=== PATIENT | female | born 1935 | race Caucasian/White ===

== ENCOUNTER 2016-11-29 16:54 | Observation (INO) | payer MEDICARE, OTHER ==
[~2016-11-29] VITALS: Ht 149.9 cm; Wt 52.3 kg
--- NOTE | 2016-11-29 17:29 | NUR ---
RECEIVED VIA WHEELCHAIR TO ROOM. LEFT EYE SWOLLEN WITH SCELERA SEEN TO BE RED. BANDAID SEEN ACROSS NOSE. BED ALARM SET. WILL ADMIT.
--- NOTE | 2016-11-29 17:31 | NUR ---
BOX ALARM SET ON PATIENT BED ALARM IS NOT WORKING.
--- NOTE | 2016-11-29 17:32 | NUR ---
PATIENT IS NOT AWARE OF WHAT MEDICATIONS SHE TAKES, SON AT BEDSIDE AND WILL BRING HOME MEDICATIONS TO US. [facility].
[2016-11-29 17:41] VITALS: BP 103/43; Ht 149.9 cm; Wt 52.3 kg
--- NOTE | 2016-11-29 18:19 | NUR ---
SALINE LOCK WITH 20 G TO RIGHT AC, X [address] STICK. WILL MAKE NPO FOR CT SCAN.
[2016-11-29 18:47] LABS: BASOPHILS 0.3 % (0.0-2.0); HEMATOCRIT 33.3 % (36.0-48.0); HEMOGLOBIN 10.9 g/dL (12-16); IMMATURE GRANULOCYTES 0.6 % (0-5); LYMPHOCYTES 17.1 % (15-50); MCH 29.5 pg (26.0-34.0); MCHC 32.7 g/dL (31.0-37.0); MCV 90.2 fL (80.0-100.0); MONOCYTES 4.4 % (2-11); NEUTROPHILS 73.6 % (40-80); PLATELET COUNT 299 10x3/uL (130-400); RBC 3.69 10x6/uL (4.00-5.40); RDW 16.3 % (11.5-14.5); WBC 8.7 10x3/uL (4.8-10.8)
[2016-11-29 19:05] LABS: ALBUMIN 3.1 g/dL (3.4-5.0); ANION GAP 14.6 mmol/L (8-16); BILIRUBIN - TOTAL 0.25 mg/dL (0.2-1.3); CALCIUM 10.1 mg/dL (8.5-10.1); CARBON DIOXIDE 25.2 mmol/L (21.0-32.0); CREATININE - SERUM 1.4 mg/dL (0.6-1.3); POTASSIUM - SERUM 3.8 mmol/L (3.5-5.1); PROTEIN - SERUM 7.7 g/dL (6.4-8.2)
--- NOTE | 2016-11-29 19:30 | NUR ---
DENIES NEEDS AT THIS TIME. ALERT AND ORIENTED X3. UP WITH ASSIST ON ROOM AIR, 20G TO RT AC INTACT WITH NO R/S NOTED AT SITE. ON BOX ALARM FOR SAFETY, HOB FLAT, SR UP X2, C/L IN REACH. BRUISES NOTED TO FACIAL AREA. C/L IN REACH, CONTINUE TO MONITOR.
[2016-11-30] VITALS: BP 88/43
--- NOTE | 2016-11-30 01:47 | NUR ---
EYES CLOSED, RESP EVEN AND UNLAB. NO S/S OF ACUTE DISTRESS NOTED. C/L IN REACH.
[2016-11-30 04:00] VITALS: BP 101/45
--- NOTE | 2016-11-30 07:20 | NUR ---
BOX ALARM REPLACED TO PATIENT. LEFT EYE IS SWOLLEN AND PURPLE IN COLOR, ABLE TO OPEN SLIGHTLY. SALINE LOCK SEEN TO RIGHT AC. ON ROOM AIR. WILL CONTINUE TO MONITOR.
[2016-11-30 07:32] VITALS: BP 171/74
--- NOTE | 2016-11-30 09:27 | NUR ---
NEW WALLY FROM DR WATSON.
[2016-11-30] MEDS ORDERED: CYMBALTA30 MG PO (10:20)
[2016-11-30] MEDS ORDERED: METHOTREXATE2.5 MG PO (10:22)
[2016-11-30] MEDS ORDERED: LOTREL 10/20 CA1 CAP PO (10:23)
[2016-11-30] MEDS ORDERED: FOLIC ACID1 MG PO (10:23)
[2016-11-30] MEDS ORDERED: SYNTHROID50 MCG PO (10:24)
[2016-11-30] MEDS ORDERED: NYSTATIN ORAL SU5 ML PO (10:25)
--- NOTE | 2016-11-30 11:27 | NUR ---
SCD'S ON BILATERAL LE
[2016-11-30 11:34] VITALS: BP 161/44
[2016-11-30 15:33] VITALS: BP 160/62
--- NOTE | 2016-11-30 17:07 | NUR ---
Patient Name: STARR BRANDT Admission Status: Urgent Accout number: [id number] Admission Date: 11-29-2016 : 1935 Admission Diagnosis: Attending: FREDA Current LOS: 1 Anticipated DC Date: Planned Disposition: Home Primary Insurance: MEDICARE A & B Discharge Planning Comments: * Is the patient Alert and Oriented? Yes 0 * How many steps to enter\exit or inside your home? RAMP 0 * PCP DR. WATSON 0 * Pharmacy [facility] 0 * Preadmission Environment Home with Family 0 * ADLs Independent 0 * Equipment Cane Walker Wheelchair 0 * Other Equipment NO MEDICAL EQUIPMENT PROVIDER PREFERENCE 0 * List name and contact numbers for known caregivers / representatives who currently or will assist patient after discharge: ARIELLE BRANDT JR, SON, MARCJOSH CASTORENA DTR, (IN [place] UNTIL 12-03-16) 0 * Community resources currently utilized None 0 * Please name any agencies selected above. NONE 0 * Additional services required to return to the preadmission environment? No 0 * Can the patient safely return to the preadmission environment? Yes 0 * Has this patient been hospitalized within the prior 30 days at any hospital? No 0 CM MET WITH PT AND DAUGHTER IN ROOM. PT REPORTS LIVING AT HOME INDEPENDENTLY WITH HER SPOUSE AND ADULT SON. PT ASSISTS WITH CARE OF HER SPOUSE AT HOME. T [employer] HAVE NO OTHER OUTSIDE SERVICES ASSISTING IN THE HOME. CM DISCUSSED AVAILABILITY OF HOME HEALTH, REHAB SERVICES AND MEDICAL EQUIPMENT. PT DENIES DISCHARGE NEEDS, REPORTS HER SON OR DAUGHTER WILL TRANSPORT HER HOME AT DISCHARGE. PT REPORTS THAT THEY DO NOT SEE ANY BENEFIT FROM HOME HEALTH THEY BOTH HAVE USED THEM IN THE PAST WITH NO PERCEIVED BENEFIT; PT REPORTS FAMILY WILL TAKE CARE OF THEIR NEEDS AT HOME. PT PLANS TO GO HOME AT DISCHARGE AND DENIED DISCHARGE NEEDS AT THIS TIME, REFUSING HOME HEALTH AND REHAB SERVICES. CM TO FOLLOW AND ASSIST NEEDED. Bar Steward: Carlos Manuel De Los Santos
--- NOTE | 2016-11-30 18:19 | NUR ---
VERBAL AND WRITTEN DISCHARGE INSTRUCTIONS GIVEN TO PATIENT AND DAUGHTER. SALINE LOCK REMOVED WITH CATH TIP INTACT.
--- NOTE | 2016-11-30 18:28 | NUR ---
DISCHARGED HOME VIA WHEELCHAIR.
== END 2016-11-30 18:30 | disposition home or self-care (01) ==
LOC: D.M2 16:54 → OBSVTIME 16:55 → D.M2 11-30 18:30
PROVIDERS: ADMIT Family Medicine
DX: S09.90XA Unspecified injury of head, initial encounter (principal); W19.XXXA Unspecified fall, initial encounter; S01.21XA Laceration without foreign body of nose, initial encounter; R91.8 Other nonspecific abnormal finding of lung field; M25.561 Pain in right knee; Z72.0 Tobacco use

== ENCOUNTER 2017-01-04 10:31 | Inpatient (IN) | payer MEDICARE, OTHER ==
[~2017-01-04] VITALS: Ht 149.9 cm; Wt 51.0 kg
[~2017-01-04 10:31] MED LIST: CYMBALTA30 MG PO; FOLIC ACID1 MG PO; LOTREL 10/20 CA1 CAP PO; METHOTREXATE2.5 MG PO; NYSTATIN ORAL SU5 ML PO; SYNTHROID50 MCG PO
--- NOTE | 2017-01-04 11:09 | NUR ---
PATIENT ARRIVED TO UNIT VIA WHEELCHAIR WITH THE CHRONOMETER ASSEMBLER AND ADJUSTER. PATIENT ADMITTED FROM 'S OFFICE. PATIENT STATES SHE WENT TO OFFICE THIS AM DUE TO DIARRHEA FOR PAST FEW DAYS/WEEK. DENIES NAUSEA/ VOMITING. ALERT/ORIENTED. ASSISTED PATIENT INTO GOWN AT THIS TIME. NO ACUTE DISTRESS.
[2017-01-04 11:17] LABS: BASOPHILS 0.1 % (0.0-2.0); HEMATOCRIT 33.6 % (36.0-48.0); HEMOGLOBIN 10.8 g/dL (12-16); IMMATURE GRANULOCYTES 0.4 % (0-5); LYMPHOCYTES 11.8 % (15-50); MCH 29.9 pg (26.0-34.0); MCHC 32.1 g/dL (31.0-37.0); MCV 93.1 fL (80.0-100.0); MEAN PLATELET VOLUME 9.7 fL (7.4-10.4); MONOCYTES 6.2 % (2-11); NEUTROPHILS 79.5 % (40-80); PLATELET COUNT 261 10x3/uL (130-400); RBC 3.61 10x6/uL (4.00-5.40); RDW 18.5 % (11.5-14.5); WBC 7.1 10x3/uL (4.8-10.8)
[2017-01-04] MEDS ORDERED: FOLIC ACID1 MG PO (11:20)
[2017-01-04] MEDS ORDERED: ACETAMINOPHEN500 M1 PO (11:24)
[2017-01-04 11:38] VITALS: BP 141/63
[2017-01-04 11:41] LABS: ALBUMIN 3.2 g/dL (3.4-5.0); ANION GAP 13.8 mmol/L (8-16); BILIRUBIN - TOTAL 0.3 mg/dL (0.2-1.3); CALCIUM 9.1 mg/dL (8.5-10.1); CARBON DIOXIDE 25.2 mmol/L (21.0-32.0); MAGNESIUM - SERUM 2.2 mg/dL (1.8-2.4); PROTEIN - SERUM 8.2 g/dL (6.4-8.2)
--- NOTE | 2017-01-04 12:07 | NUR ---
22 GAUGE IV PLACED X 1 STICK BY NILDA MORATAYA RN TO RIGHT AC. GOOD BLOOD RETURN, EASY FLUSH. TAPED, DATED AND SECURED. PATIENT TOLERATED IV PLACEMENT WELL. NO DISTRESS. SITTING IN BED CONSUMING NOON MEAL AT THIS TIME.
[2017-01-04 12:19] VITALS: BP 141/63; BMI 23.0
[2017-01-04 15:54] LABS: APPEARANCE CLEAR (CLEAR); BILIRUBIN NEGATIVE (NEGATIVE); COLOR YELLOW (YELLOW); GLUCOSE NEGATIVE (NEGATIVE); KETONE NEGATIVE (NEGATIVE); LEUKOCYTE ESTERASE NEGATIVE (NEGATIVE); NITRITE NEGATIVE (NEGATIVE); PROTEIN NEGATIVE (NEGATIVE); UROBILINOGEN NORMAL (NORMAL)
[2017-01-04 16:18] VITALS: BP 166/56
--- NOTE | 2017-01-04 18:20 | NUR ---
RESTING IN BED WITH EYES OPEN, SPOUSE AT BEDSIDE. CALL LIGHT WITHIN REACH. NO DISTRESS.
[2017-01-04 20:00] VITALS: BP 101/56
--- NOTE | 2017-01-04 21:23 | NUR ---
PT LYING IN BED, EYES CLOSED, RESPIRATIONS EVEN AND UNLABORED. PT EASILY ROUSABLE TO VERBAL STIMULI, DENIES ANY ACUTE NEEDS. PT STATES SHE HAS GREAT PAIN IN BOTH HER LEGS, DENIES HAVING ANY DIARRHEA EPISODES, AND STATES SHE FEELS OK LONG SHE IS LYING FLAT. CONTINUE TO MONITOR CLOSELY. BED LOW, CALL LIGHT IN REACH, SIDE RAILS X 2, HOB 10 DEGREES.
[2017-01-05] VITALS: BP 102/62
--- NOTE | 2017-01-05 02:47 | NUR ---
PT LYING IN BED, EYES CLOSED, RESPIRATIONS EVEN AND UNLABORED. CONTINUE TO MONITOR CLOSELY.
[2017-01-05 04:00] VITALS: BP 102/60
[2017-01-05 04:01] LABS: BASOPHILS 0.2 % (0.0-2.0); EOSINOPHILS 4.4 % (0-7); HEMATOCRIT 31.9 % (36.0-48.0); HEMOGLOBIN 10.1 g/dL (12-16); IMMATURE GRANULOCYTES 0.2 % (0-5); MCH 29.6 pg (26.0-34.0); MCHC 31.7 g/dL (31.0-37.0); MCV 93.5 fL (80.0-100.0); MEAN PLATELET VOLUME 9.5 fL (7.4-10.4); MONOCYTES 3.6 % (2-11); NEUTROPHILS 70.6 % (40-80); PLATELET COUNT 255 10x3/uL (130-400); RBC 3.41 10x6/uL (4.00-5.40); RDW 18.4 % (11.5-14.5)
[2017-01-05 04:05] LABS: WBC 5.2 10x3/uL (4.8-10.8)
[2017-01-05 04:12] LABS: ALBUMIN 2.7 g/dL (3.4-5.0); ANION GAP 11.8 mmol/L (8-16); BILIRUBIN - TOTAL 0.48 mg/dL (0.2-1.3); CALCIUM 8.2 mg/dL (8.5-10.1); CARBON DIOXIDE 23.2 mmol/L (21.0-32.0); CREATININE - SERUM 0.9 mg/dL (0.6-1.3); PROTEIN - SERUM 7.3 g/dL (6.4-8.2)
--- NOTE | 2017-01-05 07:00 | NUR ---
PT WAS RECEIVED AT THE BEGINNING OF THIS SHIFT IN BED AWAKE AND ORIENTED X 3. NO VOICED COMPLAINTS OR CONCERNS. VITAL SIGNS WNL. RT AC WITH NS GOING AT 75ML'S/HR PER PUMP WITH NO DIFFICULTY. WILL BE MONITORING HER AND ASSISTING PRN WITH ADL'S. CALL LIGHT IS IN REACH. UP AD CIARA WITH MIN. ASSIST.
[2017-01-05 08:00] VITALS: BP 106/70
--- NOTE | 2017-01-05 11:51 | NUR ---
RATIONALE FOR SCD'S EXPLAINED. REFUSED SCD'S
[2017-01-05 12:00] VITALS: BP 97/59
[2017-01-05 13:47] VITALS: Ht 149.9 cm; Wt 51.0 kg
--- NOTE | 2017-01-05 15:17 | NUR ---
NO SIGNS OF ANY DISCOMFORT OR DISTRESS. PT. HAS REFUSED WEARING SCD'S. NORMAL SALINE INFUSING VIA RT. AC AT 75ML'S.HR PER PUMP. CALL LIGHT IN REACH.
[2017-01-05 17:21] VITALS: BP 98/53
--- NOTE | 2017-01-05 19:21 | NUR ---
PT AWAKE, ALERT, ORIENTED, STATES SHE IS FEELING A LITTLE BETTER. PT DENIES ANY ACUTE NEEDS, AND IS NO ACUTE DISTRESS. CONTINUE TO MONITOR CLOSELY.
[2017-01-05 20:00] VITALS: BP 97/66
[2017-01-06 04:00] VITALS: BP 93/56
--- NOTE | 2017-01-06 04:52 | NUR ---
PT LYING IN BED, EYES CLOSED, RESPIRATIONS EVEN AND UNLABORED. PT EASILY ROUSABLE TO VERBAL STIMULI. CONTINUE TO MONITOR CLOSELY.
--- NOTE | 2017-01-06 07:27 | NUR ---
RESTS IN BED WITH EYES CLOSED. IV PATENT. CALL LIGHT IN REACH. WILL CONT. PLAN OF CARE.
[2017-01-06 08:13] VITALS: BP 90/60
--- NOTE | 2017-01-06 10:08 | NUR ---
Patient Name: STARR BRANDT Admission Status: Elective Accout number: [id number] Admission Date: 01-04-2017 : 1935 Admission Diagnosis:DEHYDRATION Attending: FREDA Current LOS: 2 Anticipated DC Date: 01-06-2017 Planned Disposition: Home Primary Insurance: MEDICARE A & B Discharge Planning Comments: * Is the patient Alert and Oriented? Yes 0 * How many steps to enter\exit or inside your home? RAMP 0 * PCP DR. WATSON 0 * Pharmacy [facility] 0 * Preadmission Environment Home with Family 0 * ADLs Independent 0 * Equipment Cane Walker Wheelchair 0 * Other Equipment NO MEDICAL EQUIPMENT PROVIDER PREFERENCE 0 * List name and contact numbers for known caregivers / representatives who currently or will assist patient after discharge: ARIELLE BRANDT JR, SON, MARCJOSH CASTORENA DTR, 0 * Community resources currently utilized Other 0 * Please name any agencies selected above. OUTPATIENT REHAB ORDER PENDING PT MAKING APPT FOR OUTPATIENT PHYSICAL THERAPY AT [facility]. 0 * Additional services required to return to the preadmission environment? No 0 * Can the patient safely return to the preadmission environment? Yes 0 * Has this patient been hospitalized within the prior 30 days at any hospital? No 0 CM RECEIVED DISCHARGE AND HOME HEALTH ORDER. CM MET WITH PT IN ROOM TO DISCUSS DISCHARGE PLANNING AND NEEDS. PT REPORTS LIVING AT HOME INDEPENDENTLY; PT'S ADULT SON LIVES WITH PT. PT HAS NO MEDICAL EQUIPMENT AND NO OUTSIDE SERVICES ASSISTING IN THE HOME. CM DISCUSSED AVAILABILITY OF HOME HEALTH, REHAB SERVICES AND MEDICAL EQUIPMENT. PT DENIES DISCHARGE NEEDS, REPORTS HER SON IS HERE TO PICK HER UP FOR DISCHARGE HOME TODAY. PT AND FAMILY HAS CONSIDERED HOME HEALTH AND DENIES THE NEED, PT REPORTS SHE IS ABLE TO GET TO OUTPATIENT THERAPY AT [facility] AND ONLY HAS TO CALL TO RESCHEDULE HER APPOINTMENT FOR FIRST VISIT. PT'S FAMILY IN AGREEMENT WITH PLAN. NO FUTHER DISCHARGE NEEDS IDENTIFIED. Loan Processing Supervisor: Carlos Manuel De Los Santos
--- NOTE | 2017-01-06 10:52 | NUR ---
D/C PER PERSONAL VEHICLE
== END 2017-01-06 13:55 | disposition home or self-care (01) | DRG 641 ==
LOC: D.M2 10:31
PROVIDERS: ADMIT Family Medicine
DX: E86.0 Dehydration (principal); R19.7 Diarrhea, unspecified; I10 Essential (primary) hypertension; Z72.0 Tobacco use

== ENCOUNTER → 2018-03-10 14:31 | Outpatient (CLI) | payer MEDICARE, OTHER ==
[2017-01-05 13:47] VITALS: BMI 23.0
[~2018-03-10 14:31] MED LIST changes: +ACETAMINOPHEN500 M1 PO
== END | disposition home or self-care (01) ==
LOC: D.CT 14:31
DX: R91.8 Other nonspecific abnormal finding of lung field (principal)

== ENCOUNTER 2019-09-30 16:52 | Inpatient (IN) | payer MEDICARE, OTHER ==
[~2019-09-30] VITALS: Ht 149.9 cm; Wt 58.4 kg
[2019-09-30] MEDS ORDERED: PLAQUENIL PO (16:58)
[2019-09-30] MEDS ORDERED: CYMBALTA30 MG PO (16:59)
[2019-09-30] MEDS ORDERED: LEUCOVORIN CALCI5 MG PO (17:00)
[2019-09-30] MEDS ORDERED: AZOR 10-20 MG T1 TAB PO (17:00)
[2019-09-30] MEDS ORDERED: METHOTREXATE2.5 MG PO (17:01)
[2019-09-30] MEDS ORDERED: COLACE100 MG PO (17:01)
[2019-09-30] MEDS ORDERED: STERAPRED DS 1010 MG PO (17:02)
[2019-09-30] MEDS ORDERED: TESSALON PERLE100 MG PO (17:02)
[2019-09-30] MEDS ORDERED: ZPAK PO (17:02)
[2019-09-30] MEDS ORDERED: MUCINEX600 MG PO (17:03)
[2019-09-30] MEDS ORDERED: ALBUTEROL SULF8.5 GM INH (17:03)
[2019-09-30 17:34] LABS: BASOPHILS 0.1 % (0-2); EOSINOPHILS 0.5 % (0-7); HEMATOCRIT 34.6 % (36.0-48.0); HEMOGLOBIN 11.4 g/dL (12-16); IMMATURE GRANULOCYTES 0.3 % (0-5); LYMPHOCYTES 6.4 % (15-50); MCH 30.6 pg (26.0-34.0); MCHC 32.9 g/dL (31.0-37.0); MEAN PLATELET VOLUME 9.4 fL (7.4-10.4); MONOCYTES 5.8 % (2-11); NEUTROPHILS 86.9 % (40-80); RBC 3.72 10x6/uL (4.00-5.40); RDW 14.6 % (11.5-14.5); WBC 10.2 10x3/uL (4.8-10.8)
[2019-09-30 17:35] LABS: PLATELET COUNT 332 10x3/uL (130-400)
[2019-09-30 17:42] LABS: CALC OSMOLALITY 274 mosm/kg (275-300); CALCIUM 8.4 mg/dL (8.5-10.1); CARBON DIOXIDE 21.5 mmol/L (21.0-32.0); CHLORIDE - SERUM 102 mmol/L (98-107); CREATININE - SERUM 1.2 mg/dL (0.6-1.3); GLUCOSE 138 mg/dL (74-106); POTASSIUM - SERUM 4.6 mmol/L (3.5-5.1); SODIUM 135 mmol/L (136-145); UREA NITROGEN 21 mg/dL (7-18); eGFR NON AFRICAN AMERICAN 45 mL/min (90-120)
[2019-09-30 17:43] LABS: APTT 33.8 SECONDS (22.8-39.4); INR 1.13 (0.85-1.17)
[2019-09-30 17:59] LABS: ALBUMIN 3.2 g/dL (3.4-5.0); ALKALINE PHOSPHATASE 103 U/L (46-116); ALT (SGPT) 42 U/L (10-68); BILIRUBIN - TOTAL 0.28 mg/dL (0.2-1.3); CKMB 1.6 U/L (0.0-3.6); CREATINE KINASE 47 UL (21-215); PRO BNP 16308 pg/mL (0-450); PROTEIN - SERUM 7.4 g/dL (6.4-8.2); TROPONIN-I 0.057 ng/mL (0.000-0.060)
[2019-09-30 19:08] VITALS: BP 117/79
--- NOTE | 2019-09-30 20:00 | NUR ---
RECIEVED TO ROOM ALERT AND ORIENTIATED, REPORTS SOB AND WEAKNESS SINCE TUESDAY, O2 IN USE VIA NC, ORIENTIATED TO ROOM, CALL GODFREY GARCIA, SEE ASSESSMENT
[2019-09-30 22:20] VITALS: BP 120/64; BMI 22.2
[2019-10-01 04:00] VITALS: BP 122/65
[2019-10-01 05:24] LABS: BASOPHILS 0 % (0-2); EOSINOPHILS 0 % (0-7); HEMATOCRIT 32.5 % (36.0-48.0); HEMOGLOBIN 10.6 g/dL (12-16); IMMATURE GRANULOCYTES 0.2 % (0-5); LYMPHOCYTES 10.1 % (15-50); MCHC 32.6 g/dL (31.0-37.0); MCV 92.1 fL (80.0-100.0); MEAN PLATELET VOLUME 9.5 fL (7.4-10.4); MONOCYTES 1.7 % (2-11); PLATELET COUNT 317 10x3/uL (130-400); RBC 3.53 10x6/uL (4.00-5.40); RDW 14.7 % (11.5-14.5)
[2019-10-01 05:32] LABS: INR 1.07 (0.85-1.17); PROTIME 13.4 SECONDS (11.6-15.0)
[2019-10-01 05:51] LABS: WBC 5.7 10x3/uL (4.8-10.8)
[2019-10-01 05:59] LABS: ANION GAP 17.6 mmol/L (8-16); CALCIUM 8.6 mg/dL (8.5-10.1); CARBON DIOXIDE 19.8 mmol/L (21.0-32.0); MAGNESIUM - SERUM 2.4 mg/dL (1.8-2.4); PHOSPHOROUS 4.1 mg/dL (2.5-4.9); POTASSIUM - SERUM 4.4 mmol/L (3.5-5.1)
[2019-10-01 08:01] VITALS: BP 137/63
[2019-10-01 12:43] VITALS: BP 127/59
[2019-10-01 14:00] VITALS: BMI 22.2
[2019-10-01 15:51] VITALS: BP 95/55
[2019-10-01 16:21] VITALS: Ht 149.9 cm; Wt 58.4 kg
--- NOTE | 2019-10-01 19:31 | NUR ---
LYING IN BED WITH FAMILY AT BEDSIDE. SOB NOTED. APPEARS TO BE UNSTEADY IN DEXTERITY. PLEASANT MOOD AND AFFECT. VSS. O2 2LPM VIA NC WITH SATURATION AT 95%. WILL BE NPO AFTER MIDNIGHT FOR PROCEDURE IN AM. WILL NOTE ANY CHANGE.
[2019-10-01 20:00] VITALS: BP 104/68
--- NOTE | 2019-10-01 23:48 | NUR ---
COMPLAINTS OF SOB AND FEELING JITTERY, NOT ABLE TO CATCH BREATH, RT ON FLOOR AND ASSESSED WITH NEW ORDERS FOR NEW PRN UPDRAFT. MEDICAL CONSULTED WITH ORDERS TO CALL PULMONARY IF PRN TX INEFFECTIVE. WILL NOTE ANY CHANGE.
--- NOTE | 2019-10-02 03:03 | NUR ---
I have reviewed this patient and I concur with the Shift Assessment completed by the Licensed Practical Nurse today this shift.
[2019-10-02 04:00] VITALS: BP 141/77
[2019-10-02 04:40] LABS: BASOPHILS 0 % (0-2); EOSINOPHILS 0 % (0-7); HEMATOCRIT 30.6 % (36.0-48.0); HEMOGLOBIN 10.1 g/dL (12-16); IMMATURE GRANULOCYTES 0.3 % (0-5); MCH 30.3 pg (26.0-34.0); MCV 91.9 fL (80.0-100.0); MEAN PLATELET VOLUME 9.5 fL (7.4-10.4); MONOCYTES 4.5 % (2-11); NEUTROPHILS 90.2 % (40-80); PLATELET COUNT 362 10x3/uL (130-400); RBC 3.33 10x6/uL (4.00-5.40); RDW 14.8 % (11.5-14.5)
[2019-10-02 04:43] LABS: WBC 13.7 10x3/uL (4.8-10.8)
[2019-10-02 05:09] LABS: ANION GAP 16.5 mmol/L (8-16); BILIRUBIN - TOTAL 0.24 mg/dL (0.2-1.3); CALCIUM 8.5 mg/dL (8.5-10.1); CARBON DIOXIDE 20.7 mmol/L (21.0-32.0); CREATININE - SERUM 1.2 mg/dL (0.6-1.3); POTASSIUM - SERUM 4.2 mmol/L (3.5-5.1); PROTEIN - SERUM 7.1 g/dL (6.4-8.2)
--- NOTE | 2019-10-02 08:25 | NUR ---
PT RESTING IN BED. RESP EVEN AND UNLABORED. O2 @ 2.5L NC IN PLACE. PT VOICES ANXIETY REGARDING UPCOMING PROCEDURE. TALKED WITH PT REGARDING PROCEDURE. DENIES PAIN AT THIS TIME. DENIES FURTHER NEEDS AT THIS TIME. CL WITHIN REACH. ENCOURAGED TO CALL WITH NEEDS. CONTINUE POC
[2019-10-02 08:45] VITALS: BP 128/85; BP 129/72
--- NOTE | 2019-10-02 11:27 | NUR ---
CONTACTED DR. DISLA TO VERIFY THAT NITESH WOULD NOT BE PERFORMED TODAY. HE VOICES THAT IT WILL NOT BE PERFORMED UNTIL TUESDAY AND OK TO FEED PT.
[2019-10-02 13:07] VITALS: BP 123/76
[2019-10-02 16:45] VITALS: BP 106/53
--- NOTE | 2019-10-02 19:30 | NUR ---
A&O X 4, SUPINE IN BED. DENIES SOB/DYSPNEA/WEAKNESS. REPORTS ANXIETY AFTER STEROIDS. VS STABLE. FAMILY AT BEDSIDE, NO NEEDS AT THIS TIME, WILL CONTINUE TO MONITOR.
[2019-10-02 21:10] VITALS: BP 139/68
[2019-10-03] VITALS (11 sets, daily range): BP systolic 91–130; BP diastolic 52–90
--- NOTE | 2019-10-03 01:32 | NUR ---
I have reviewed this patient and I concur with the Shift Assessment completed by the Licensed Practical Nurse today this shift.
[2019-10-03 07:33] LABS: BASOPHILS 0 % (0-2); EOSINOPHILS 0 % (0-7); HEMATOCRIT 32.1 % (36.0-48.0); HEMOGLOBIN 10.3 g/dL (12-16); IMMATURE GRANULOCYTES 0.5 % (0-5); LYMPHOCYTES 7.1 % (15-50); MCHC 32.1 g/dL (31.0-37.0); MCV 93.6 fL (80.0-100.0); MEAN PLATELET VOLUME 9.7 fL (7.4-10.4); MONOCYTES 5.2 % (2-11); NEUTROPHILS 87.2 % (40-80); PLATELET COUNT 356 10x3/uL (130-400); RBC 3.43 10x6/uL (4.00-5.40); RDW 15.1 % (11.5-14.5)
--- NOTE | 2019-10-03 07:37 | NUR ---
RESTING IN BED, NO DISTRESS NOTED, O2 PER NC AT 2L, SL IN PLACE BILATERALLY, CONT TO MONITOR
[2019-10-03 07:55] LABS: ALBUMIN 3.2 g/dL (3.4-5.0); ANION GAP 16.4 mmol/L (8-16); BILIRUBIN - TOTAL 0.21 mg/dL (0.2-1.3); CALCIUM 8.3 mg/dL (8.5-10.1); CARBON DIOXIDE 21.4 mmol/L (21.0-32.0); CREATININE - SERUM 1.5 mg/dL (0.6-1.3); POTASSIUM - SERUM 4.8 mmol/L (3.5-5.1); PROTEIN - SERUM 7.1 g/dL (6.4-8.2)
--- NOTE | 2019-10-03 16:55 | NUR ---
1550 PT C/O NAUSEA, MEDICATED WITH ZOFRAN, PT STATES I THINK SOMETHING MORE IS WRONG, ATTEMPTED PULSE OX, O2 AT 4 L PER NC, UNABLE TO OBTAIN A SAT, RAPID RESPONSE CALLED
--- NOTE | 2019-10-03 16:56 | NUR ---
ABG DRAWN, SIERRA RN FROM ICU HERE,PT PLACED ON NONREBREATHER MASK, CONT TO NOT BE ABLE TO OBTAIN SAT, PT ANXIOUS, BP WNL, TELE IN PLACE, REPORT CALLED TO BY SIERRA, PT TRANSFERED TO ROOM 11 PER BED, TRIED TO REACH HERIBERTO TO UPDATE ON PT MOVE, NO ANSWER
--- NOTE | 2019-10-03 17:00 | NUR ---
PT TO ROOM 2309 FROM MED SURG. ON NONREBREATHER AT 100% AND O2 SAT AT 97%. IVS TO RIGHT FOREARM AND LEFT FOREARM. PT GIVEN ATIVAN BEFORE BEING SENT TO THE FLOOR.
--- NOTE | 2019-10-03 17:15 | NUR ---
BUMEX GIVEN PER ORDER. RT PLACED PT ON HIGH FLOW O2 AT 7L. O2 SATS STAYING 86-92%. LUNGS AUSCULTATED. INS AND EXP WHEEZES HEARD EFREN IN ALL LOBES. BOWEL SOUNDS HYPOACTIVE IN ALL 4 QUADRANTS. PT DROWSY AFTER ATIVAN GIVEN EARLIER BUT CLUTCHING LEFT LOWER QUADRANT OF ABD. DAUGHTER AT BEDSIDE. UPDATED. WILL CONTINUE TO MONITOR.
--- NOTE | 2019-10-03 17:20 | NUR ---
1715 SPOKE WITH DAUGHTER MARC, UPDATED ON CONDITION CHANGE
--- NOTE | 2019-10-03 17:50 | NUR ---
1620 ATIVAN 1MG GIVEN IV FOR ANXIETY
--- NOTE | 2019-10-03 17:59 | NUR ---
SPOKE AT LENGTH WITH PT'S DAUGHTER. STATES PT HAS HAD ABDOMINAL PAIN. THAT SHE HAD A VERY SMALL BM SINCE SHE'S BEEN HERE TUESDAY. STATES THAT THE PT HAS STARTED GETTING NAUSEATED AT MEALS AND WON'T EAT BUT A COUPLE OF BITES. BOWEL SOUNDS ARE HYPOACTIVE. TOLD DAUGHTER I WOULD PASS IN REPORT. CHARGE NURSE ALSO SPOKE WITH PT'S DAUGHTER AND STATED SHE WOULD LET THE CHARGE NURSE KNOW.
--- NOTE | 2019-10-03 19:00 | NUR ---
REPORT RECEIVED. INITIAL ASSESSMENT COMPLETE. PT LETHARGIC DOES ANSWER QUESTIONS APPROPRIATELY IS ORIENTED TO PERSON PLACE TIME AND SITUATION. DRIFTS IN AND OUT OF SLEEP. FOLLOWS COMMANDS. RESP SHALLOW ON 7LPM HFNC O2 SAT 98%. HYPOACTIVE BOWEL SOUNDS PT DENIES PAIN AT THIS TIME AND STATES "I DONT KNOW WHAT MADE ME SICK TO MY STOMACH EARLIER BUT I WAS NAUSEATED AND MY BELLY HURT REALLY BAD DOES NOT HURT NOW". CM READING SR WITHOUT ECTOPY. BED LOW POSITION SIDE RAILS UP TIMES 3 FOR BED MOBILITY AND SAFETY CL IN REACH PT RETURNS DEMONSTRATION ON HOW TO USE CL TO REACH NURSE. VSS CPOC WILL MONITOR
--- NOTE | 2019-10-03 20:00 | NUR ---
FAMILY AT BEDSIDE FOR VISITATION. DAUGHTER MARC AND GRANDDAUGHTER. PTS GRANDDAUGHTER ANXIOUS AND DEMANDING AN X RAY FOR THE NAUSEA AND ABD DISCOMFORT PT HAD EARLIER BUT DENIES NOW. PT STATES ABD DOES NOT HURT SHE FEELS MUCH BETTER AND NO LONGER NAUSEATED. GRANDDAUGHTER ALSO NOT HAPPY PT IS SO SLEEPY INFORMED THAT PT WAS GIVEN ATIVAN DUE TO ANXIETY WHEN SHE WAS EXPERIENCING SOB ON FLOOR. INFORMED PT WAKES EASILY IS ORIENTED AND FOLLOWS COMMANDS THAT THE ATIVAN WAS EFFECTIVE AND PT CONDITION WAS TO BE EXPECTED WITH ATIVAN DOSAGE.
--- NOTE | 2019-10-03 23:00 | NUR ---
REASSESSMENT COMPLETE. VSS CPOC
[2019-10-04] VITALS (24 sets, daily range): BP systolic 97–145; BP diastolic 56–89
--- NOTE | 2019-10-04 | NUR ---
ANSWERED CALL LIGHT PT REQUESTING BEDPAN TO URINATE. PT ABLE TO TURN REPOSITION INDEPENDENTLY AND LIFTS BOTTOM OFF OF BED TO REMOVE BEDPAN. PT URINE CLEAR YELLOW
--- NOTE | 2019-10-04 02:27 | NUR ---
ANSWERED PTS CALL LIGHT REQUESTING TO USE BED HAIDER PT ABLE TO LIFT BUTTOCKS OFF BED FOR BED HAIDER CLEAR YELLOW URINE ASSISTED WITH CATALINO
--- NOTE | 2019-10-04 03:00 | NUR ---
REASSESSMENT COMPLETE. REPOSITIONED FOR COMFORT CPOC. VSS NO DISTRESS NOTED. PT DENIES PAIN OR DISCOMFORT
[2019-10-04 04:14] LABS: BASOPHILS 0 % (0-2); EOSINOPHILS 0 % (0-7); HEMATOCRIT 31.5 % (36.0-48.0); HEMOGLOBIN 10.2 g/dL (12-16); IMMATURE GRANULOCYTES 0.6 % (0-5); LYMPHOCYTES 3.6 % (15-50); MCH 29.9 pg (26.0-34.0); MCHC 32.4 g/dL (31.0-37.0); MCV 92.4 fL (80.0-100.0); MEAN PLATELET VOLUME 9.7 fL (7.4-10.4); MONOCYTES 6.8 % (2-11); PLATELET COUNT 370 10x3/uL (130-400); RBC 3.41 10x6/uL (4.00-5.40); RDW 14.7 % (11.5-14.5); WBC 14.5 10x3/uL (4.8-10.8)
--- NOTE | 2019-10-04 04:15 | NUR ---
ANSWERED PTS CALL LIGHT REQUESTING BED HAIDER ASSISTED CLEAR YELLOW URINE AND PERICARE COMPLETE
[2019-10-04 04:47] LABS: ALBUMIN 2.9 g/dL (3.4-5.0); ANION GAP 17.1 mmol/L (8-16); BILIRUBIN - TOTAL 0.17 mg/dL (0.2-1.3); CALCIUM 7.8 mg/dL (8.5-10.1); CARBON DIOXIDE 22.4 mmol/L (21.0-32.0); CREATININE - SERUM 1.6 mg/dL (0.6-1.3); POTASSIUM - SERUM 4.5 mmol/L (3.5-5.1); PROTEIN - SERUM 6.8 g/dL (6.4-8.2)
--- NOTE | 2019-10-04 08:16 | NUR ---
family at bedside. update provided. tentative fito at 12.
--- NOTE | 2019-10-04 08:33 | NUR ---
Nutrition follow-up: Diet: Regular as tolerated PO intake poor Labs reviewed; LFT's elevated Wt: 131# NITESH today at noon Pt has been c/o nausea, abdominal pain RDN following.
--- NOTE | 2019-10-04 09:51 | NUR ---
pt had urinated on self. daughter pulled pad and helped pt put on new underwear. i went in and replaced all linens. denies any additional needs. awaiting procedure.
--- NOTE | 2019-10-04 10:06 | NUR ---
PYXIS DOES NOT CONTAIN ENOUGH SOLUMEDROL FOR PT DOSING. HAVE CALLED PHARMACY FOR FILL
--- NOTE | 2019-10-04 10:50 | NUR ---
DR STOVALL AT BEDSIDE. DAUGHTER BROUGHT IN TO SPEAK WITH HIM.
--- NOTE | 2019-10-04 12:09 | NUR ---
CONSENTS OBTAINED FROM PT AND DAUGHTER. CRISTAL HAD OPPORTUNITY TO SPEAK WITH DR JARA PRIOR TO NITESH.
--- NOTE | 2019-10-04 12:54 | MORECARE ---
CASE MANAGEMENT DISCHARGE SUMMARY PATIENT: STARR BRANDT UNIT: [id number] ADM DATE: 09/30/19 AGE: 84 : 36 SEX: F ROOM/BED: D.2309 AUTHOR: ANTONIO RANDALL PHYSICIAN: REFERRING PHYSICIAN: JANA COBOS MD DATE OF SERVICE: 10/04/19 Discharge Plan Patient Name: STARR BRANDT [facility] : 1935 Planned Disposition: Anticipated Discharge Date: Discharge Date: Expected LOS: Initial Reviewer: [email or web address] Initial Review Date: 09/30/2019 Generated: 10/04/19 1:53 pm Comments DCP- Discharge Planning Updated by [email or web address]: Regi Gómez on 10/04/19 11:[address] CM attempted to see patient regarding discharge planning / needs. Patient is currently having a procedure at bedside. CM will come back at a later time to evaluate discharge needs. CM will continue to follow and assist as needed with discharge planning / needs Patient Name: STARR BRANDT Page [id number] at 1254 All edits/amendments must be made on the electronic document DICTATION DATE: 10/04/19 125 HR CLERK: ERINN 10/04/19 1253 RPT#: [id number] DC DATE: STATUS: ADM IN [facility] [address] [place] [address] END OF REPORT
--- NOTE | 2019-10-04 13:11 | NUR ---
DR COBOS AT BEDSIDE SPEAKING WITH PT AND DAUGHTER MARC.
--- NOTE | 2019-10-04 13:43 | NUR ---
DR JARA CAME BACK BY TO SPEAK WITH PT AND DAUGHTER. DAUGHTER HAD STEPPED OUT OF WAITING AREA WHEN DR JARA HAD GONE TO UPDATE HER IMMEDIATELY AFTER NITESH
--- NOTE | 2019-10-04 15:27 | NUR ---
DAUGHTER MARC CALLED TO CHECK ON PATIENT AFTER SHE HAD EATEN TO MAKE SURE SHE HADN'T GOTTEN SICK. PT RESTING QUIETLY AT THIS TIME. NO VOMITTING
--- NOTE | 2019-10-04 20:45 | NUR ---
BEDSIDE REPORT RECEIVED FROM [facility]. PT SITTING UP IN BED, ALERT AND ORIENTED. FAMILY AT BEDSIDE. UPDATE GIVEN. PT AND FAMILY DENY ANY NEEDS AT THIS TIME. CALL LIGHT IN REACH, BED ALARM ON AND BED IN LOWEST POSITION. WILL CONTINUE TO MONITOR.
--- NOTE | 2019-10-04 21:00 | NUR ---
MEDS GIVEN PER MAR AND TOLERATED BY PT.
--- NOTE | 2019-10-04 23:00 | NUR ---
REASSESSMENT COMPLETE, SEE FLOWSHEET. VSS, NO SIGNS OF ACUTE DISTRESS NOTED. PT REQUESTING SIP OF WATER, DENIES ANY OTHER NEEDS. CALL LIGHT IN REACH, WILL CONTINUE TO MONITOR.
[2019-10-05] VITALS (16 sets, daily range): BP systolic 123–147; BP diastolic 67–93
--- NOTE | 2019-10-05 01:49 | NUR ---
PLACED PATIENT ON BEDPAN, 150CC YELLOW URINE COLLECTED. NEW SANITARY PAD PROVIDED. PATIENT DENIES FURTHER NEEDS. CL IN REACH.
--- NOTE | 2019-10-05 03:50 | NUR ---
PT RESTING WITH EYES CLOED, NO S/S OF DISTRESS OBSERVED. RR EVEN AND UNLABORED ON 5L NC HIGH FLOW. VSS.
[2019-10-05 04:08] LABS: BASOPHILS 0 % (0-2); EOSINOPHILS 0 % (0-7); HEMATOCRIT 29.9 % (36.0-48.0); HEMOGLOBIN 9.6 g/dL (12-16); IMMATURE GRANULOCYTES 0.7 % (0-5); LYMPHOCYTES 4.4 % (15-50); MCH 29.8 pg (26.0-34.0); MCHC 32.1 g/dL (31.0-37.0); MCV 92.9 fL (80.0-100.0); MEAN PLATELET VOLUME 9.7 fL (7.4-10.4); MONOCYTES 4.5 % (2-11); NEUTROPHILS 90.4 % (40-80); PLATELET COUNT 350 10x3/uL (130-400); RBC 3.22 10x6/uL (4.00-5.40)
[2019-10-05 04:12] LABS: WBC 8.6 10x3/uL (4.8-10.8)
[2019-10-05 04:30] LABS: ALBUMIN 2.7 g/dL (3.4-5.0); ANION GAP 16.4 mmol/L (8-16); BILIRUBIN - TOTAL 0.21 mg/dL (0.2-1.3); CALCIUM 7.8 mg/dL (8.5-10.1); CARBON DIOXIDE 22.4 mmol/L (21.0-32.0); CREATININE - SERUM 1.5 mg/dL (0.6-1.3); POTASSIUM - SERUM 4.8 mmol/L (3.5-5.1); PROTEIN - SERUM 6.5 g/dL (6.4-8.2)
--- NOTE | 2019-10-05 05:49 | NUR ---
PATIENT HAD INCONTINENT EPISODE. BED BATH GIVEN, LINENS AND GOWN CHANGED. PATIENT ALSO VOIDED 250ML IN BEDPAN. NEW PULL-UP PROVIDED, WELL FRESH ICE WATER AND KLEENEX. PATIENT DENIES FURTHER NEEDS AT THIS TIME. CL IN REACH, BED LOCKED AND LOWERED. BED ALARM ON. WILL CTM.
--- NOTE | 2019-10-05 06:44 | NUR ---
PATIENT IS RESTING WITH EYES CLOSED, NO S/S OF DISTRESS. VSS.
--- NOTE | 2019-10-05 07:00 | NUR ---
REC'D REPORT AND RESUMED CARE, SLEEPING AROUSABLE TO VERBAL STIMULI, ORIENTED X4, VSS, DENIES PAIN, ASSESSMENT COMPLETED PER FLOWSHEET, CALL LIGHT IN REACH, SELF REPOSITIONS, NO NEEDS AT THIS TIME
--- NOTE | 2019-10-05 09:00 | NUR ---
MORNING MEDS GIVEN WITH SIPS OF WATER
--- NOTE | 2019-10-05 09:47 | NUR ---
NUTRITION F/U CHART REVIEWED, PT VISIT. SITTING ON SIDE OF BED EATING BREAKFAST. STATES PO INTAKE HAS BEEN POOR PRIOR TO THIS BREAKFAST. STATES SHE IS NOW VERY HUNGRY AND IS EATING WELL. RD FOLLOWING
--- NOTE | 2019-10-05 10:48 | EC ---
PATIENT:STARR BRANDT DATE OF SERVICE: 09/30/19 SEX: F MEDICAL RECORD: [id number] DATE OF : 37 LOCATION:[facility] D230 AGE OF PATIENT: 84 ADMISSION DATE: 09/30/19 REFERRING PHYSICIAN: INTERPRETING PHYSICIAN: MERCEDEZ JARA MD ECHOCARDIOGRAM REPORT ECHO CHARGES 4 ECHO COMPLETE Date: 10/04/19 CLINICAL DIAGNOSIS: ASSESS EF CHF/ELEVATED BNP ECHOCARDIOGRAPHIC MEASUREMENTS (adult normal given) AC root (d.<3.7cm) 3.3 cm LV Septum d (<1.2 cm> 1.6 cm Valve Excursion 1.7 cm LV Septum (systole) 1.7 cm Left Atria (s.<4.0cm> 4.6 cm LVPW d(<1.2cm) 1.8 cm RV (d.<2.3cm) 3.1 cm LVPW (sytole) 1.8 cm LV diastole(<5.6CM) 4.3 cm MV E-F(>70mm/sec) cm LV systole 4.3 cm LVOT Diameter 1.9 cm MV exc.(>10mm) 1.4 cm Est.ejection fraction (50-75%) % DOPPLER: LVIT cm/sec A 94.0 cm/sec E 118.0 cm/sec LA cm/sec RVSP 49 mmHg LVOT 98 cm/sec AOP1/2T m/s Asc. Ao 116 cm/sec RVOT 81 cm/sec RA cm/sec PA 94 cm/sec AV Gradient Peak 5.41 mmHg AV Mean 2.92 mmHg AV Area 2.2 cm MV Gradient Peak 6.10 mmHg MV Mean 2.33 mmHg MV Area cm COMMENTS: Art Objects Supervisor: Omayra SILVESTRE Seasoner Hand: 3 Dr. Angel TAPE# PACS Pericardial Effusion N DATE OF SERVICE: 10/04/2019 PROCEDURE: Transesophageal echocardiographic study. DESCRIPTION OF THE PROCEDURE: After general sedation via TIVA by anesthesia, a transesophageal Omniplane probe was placed in the distal esophagus and proximal stomach without difficulty. FINDINGS: As follows; LVH is present. LV internal dimensions are normal. LV is globally hypokinetic with more marked septal hypokinesis. LV function is ECHOCARDIOGRAM REPORT [id number] STARR BRANDT reduced at 30% to 35%. Aortic valve is tricuspid with good valve excursion and trivial AI. Left atrium is well visualized with normal dimensions. Normal left atrial appendage is in good contractility. Mitral valve is well visualized. This showed extensive mitral annular calcification and moderate MR. Right-sided chamber is grossly normal. Tricuspid valve appears normal with mild TR. 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 IMPRESSION: Decreased LV function, moderate MR. 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 TRANSINT:[id number] Voice Confirmation ID: [id number] DOCUMENT ID: [id number] MERCEDEZ JARA MD at 1048 CC: [id number] DICTATION DATE: 10/04/19 1231 USABILITY SPECIALIST: 10/04/192003 ADM IN [facility] [address] [place] [address]
--- NOTE | 2019-10-05 11:00 | NUR ---
RESTING WITH NO SIGNS OF DISTRESS, VSS, DENES PAIN, REASSESSMENT COMPLETED, NO ACUTE CHANGE FROM PREVIOUS
--- NOTE | 2019-10-05 13:00 | NUR ---
FAMILY AT BEDSIDE, AWAITING PATIENT TO GO FOR PIPIDA SCAN, NO OTHER NEEDS AT THIS TIME
--- NOTE | 2019-10-05 17:08 | MORECARE ---
CASE MANAGEMENT DISCHARGE SUMMARY PATIENT: STARR BRANDT UNIT: [id number] ADM DATE: 09/30/19 AGE: 84 : 36 SEX: F ROOM/BED: D.2203 AUTHOR: ANTONIO RANDALL PHYSICIAN: REFERRING PHYSICIAN: JANA COBOS MD DATE OF SERVICE: 10/05/19 Discharge Plan Patient Name: STARR BRANDT Facility: [facility]:[place] : 1935 Planned Disposition: Home Anticipated Discharge Date: Discharge Date: Expected LOS: Initial Reviewer: [email or web address] Initial Review Date: 10/05/2019 Generated: 10/05/19 6:08 pm DCP- Discharge Planning Updated by [email or web address]: Regi Gómez on 10/04/19 11:[address] CM attempted to see patient regarding discharge planning / needs. Patient is currently having a procedure at bedside. CM will come back at a later time to evaluate discharge needs. CM will continue to follow and assist as needed with discharge planning / needs Last DP export: 10/04/19 11:54 Patient Name: STARR BRANDT Page [id number] at 1708 All edits/amendments must be made on the electronic document DICTATION DATE: 10/05/191707 VENEER GLUE SPREADER: ERINN 10/05/191707 RPT#: [id number] DC DATE: STATUS: ADM IN [facility] [address] [place] [address] END OF REPORT
--- NOTE | 2019-10-05 17:16 | MORECARE ---
CASE MANAGEMENT DISCHARGE SUMMARY PATIENT: STARR BRANDT UNIT: [id number] ADM DATE: 09/30/19 AGE: 84 : 36 SEX: F ROOM/BED: D.2203 AUTHOR: TONIA,DOC PHYSICIAN: REFERRING PHYSICIAN: JANA COBOS MD DATE OF SERVICE: 10/05/19 Discharge Plan Patient Name: STARR BRANDT Facility: [facility]:[place] : 1935 Planned Disposition: Home Anticipated Discharge Date: Discharge Date: Expected LOS: Initial Reviewer: [email or web address] Initial Review Date: 10/05/2019 Generated: 10/05/19 6:16 pm Comments DCP- Discharge Planning Updated by [id number]: Regi Gómez on 10/05/19 4:[address] Patient Name: STARR BRANDT Admission Status: ER Accout number: [id number] Admission Date: 09-30-2019 : 1935 Admission Diagnosis: Attending: JANA COBOS Current LOS: 5 Anticipated DC Date: Planned Disposition: Home Primary Insurance: MEDICARE A & B Discharge Planning Comments: CM met with patient to complete initial dc planning assessment. CM educated patient on the CM role and verbal consent given by patient to complete assessment. Patient lives at home with her son where she is independent with her care. At discharge patient plans to return home and feels this is a safe discharge. CM discussed availability of home health, rehab services, and medical equipment. Family will drive her home on discharge . Patient has a cane and walker. Patient denied known discharge needs at this time. CM will continue to follow and will assist as needed with dc plans/needs. Tire Buster: Regi Gómez DCP- Discharge Planning Updated by [email or web address]: Regi Gómez on 10/04/19 11:[address] CM attempted to see patient regarding discharge planning / needs. Patient is currently having a procedure at bedside. CM will come back at a later time to evaluate discharge needs. CM will continue to follow and assist as needed with discharge planning / needs DCPIA - Discharge Planning Initial Assessment Updated by [email or web address]: Regi Gómez on 10/05/19 5:11 pm * Is the patient Alert and Oriented? Yes * How many steps to enter\exit or inside your home? ramp * PCP W[facility] * Pharmacy [facility] * Preadmission Environment Home with Family * ADLs Independent * Other Equipment WALKER, W/C * List name and contact numbers for known caregivers / representatives who currently or will assist patient after discharge: ARIELLE BRANDT JR [phone], * Verbal permission to speak to the caregivers and representatives has been obtained from the patient. Yes * Community resources currently utilized None * Additional services required to return to the preadmission environment? No * Can the patient safely return to the preadmission environment? Yes * Has this patient been hospitalized within the prior 30 days at any hospital? No Last DP export: 10/05/19 4:08 Patient Name: STARR BRANDT Page [phone] at 1716 All edits/amendments must be made on the electronic document DICTATION DATE: 10/05/191715 ELECTRICAL PROSPECTING OPERATOR: ERINN 10/05/191715 RPT#: [id number] DC DATE: STATUS: ADM IN [facility] [address] [place] [address] END OF REPORT
--- NOTE | 2019-10-05 18:02 | NUR ---
PT CARE ASSUMED. VSS.
--- NOTE | 2019-10-05 19:40 | NUR ---
LYING IN BED RECEIVING UD. ALERT AND ORIENTED X4. RESP IRREG, SLIGHTLY LABORED. O2 @ 2L/HFC. NONPROD COUGH NOTED. USED I.S. AND FLUTTER VALVE. BBS ISP/EXP WHEEZES. DENIES PAIN. GEN WEAKNESS NOTED. AMB WITH ASSIST X1. SALINE LOCK NOTED TO LT FOREARM. NO DISTRESS. SR ELEVATED X2. CL IN REACH.
[2019-10-06] VITALS: BP 109/61
--- NOTE | 2019-10-06 01:13 | NUR ---
LYING ON RT SIDE IN BED WITH EYES CLOSED. RESP NONLABORED. NO DISTRESS. SR ELEVATED X2. CL IN REACH.
[2019-10-06 04:00] VITALS: BP 102/71
--- NOTE | 2019-10-06 06:00 | NUR ---
SLEPT WELL THIS SHIFT. STATES SHE FEELS OK BUT IS WEAK. NO DISTRESS. CL IN REACH.
[2019-10-06 06:27] LABS: BASOPHILS 0 % (0-2); EOSINOPHILS 0 % (0-7); HEMATOCRIT 32.8 % (36.0-48.0); HEMOGLOBIN 10.7 g/dL (12-16); IMMATURE GRANULOCYTES 1.1 % (0-5); LYMPHOCYTES 4.9 % (15-50); MCH 30.1 pg (26.0-34.0); MCHC 32.6 g/dL (31.0-37.0); MCV 92.4 fL (80.0-100.0); MEAN PLATELET VOLUME 9.5 fL (7.4-10.4); MONOCYTES 8.1 % (2-11); NEUTROPHILS 85.9 % (40-80); PLATELET COUNT 340 10x3/uL (130-400); RBC 3.55 10x6/uL (4.00-5.40); RDW 15.3 % (11.5-14.5)
[2019-10-06 06:46] LABS: WBC 12.8 10x3/uL (4.8-10.8)
[2019-10-06 07:15] LABS: ALBUMIN 3.1 g/dL (3.4-5.0); ANION GAP 14.7 mmol/L (8-16); BILIRUBIN - TOTAL 0.22 mg/dL (0.2-1.3); CALCIUM 8.6 mg/dL (8.5-10.1); CARBON DIOXIDE 22.3 mmol/L (21.0-32.0); CREATININE - SERUM 1.2 mg/dL (0.6-1.3); PROTEIN - SERUM 6.9 g/dL (6.4-8.2)
--- NOTE | 2019-10-06 08:34 | NUR ---
RESTING IN BED, NO DISTRESS NOTED, O2 PER NC AT 2, FAMILY IN ROOM, CONT TO MONITOR RESP
[2019-10-06 09:01] VITALS: BP 112/85
[2019-10-06 13:02] VITALS: BP 132/85
[2019-10-06 17:01] VITALS: BP 124/56
[2019-10-07 00:29] VITALS: BP 136/78
--- NOTE | 2019-10-07 03:31 | NUR ---
PT C/O NAUSEA AND NASAL CONGESTION. GAVE ZOFRAN 4 MG IV PUSH AND SALINE NASAL SPRAY. NO OTHER NEEDS. WILL REASSESS AND CONTINUE TO MONITOR.
[2019-10-07 05:30] VITALS: BP 131/74
[2019-10-07 06:28] LABS: BASOPHILS 0.1 % (0-2); EOSINOPHILS 0 % (0-7); HEMATOCRIT 33.3 % (36.0-48.0); HEMOGLOBIN 10.5 g/dL (12-16); IMMATURE GRANULOCYTES 1.2 % (0-5); LYMPHOCYTES 5.2 % (15-50); MCH 29.7 pg (26.0-34.0); MCHC 31.5 g/dL (31.0-37.0); MCV 94.3 fL (80.0-100.0); MEAN PLATELET VOLUME 10.1 fL (7.4-10.4); MONOCYTES 4.8 % (2-11); NEUTROPHILS 88.7 % (40-80); PLATELET COUNT 390 10x3/uL (130-400); RBC 3.53 10x6/uL (4.00-5.40); RDW 15.5 % (11.5-14.5); WBC 13.9 10x3/uL (4.8-10.8)
[2019-10-07 06:44] LABS: ALBUMIN 3.1 g/dL (3.4-5.0); ANION GAP 15.8 mmol/L (8-16); BILIRUBIN - TOTAL 0.22 mg/dL (0.2-1.3); CALCIUM 8.5 mg/dL (8.5-10.1); CREATININE - SERUM 1.3 mg/dL (0.6-1.3); PROTEIN - SERUM 6.8 g/dL (6.4-8.2)
[2019-10-07 06:47] LABS: POTASSIUM - SERUM 5.8 mmol/L (3.5-5.1)
[2019-10-07 09:06] VITALS: BP 109/76
--- NOTE | 2019-10-07 10:07 | NUR ---
PT LYING IN BED PT DAUGHTER AT BEDSIDE AND HAD BROUGHT PATIENT BREAKFAST, PT IS HAVING TROUBLE BREATHING THROUGH HER NOSE HER NOSE IS VERY STOPPED UP. SHE HAS 2 NOSE SPRAYS ORDERED AND AT BEDSIDE I EDUCATED HER ON USING THEM DIRECTED AND STATED I WILL BRING IN WHEN IT IS TIME FOR THEM. NO NEEDS VOICED, CONTINUE WITH PLAN OF CARE
--- NOTE | 2019-10-07 11:42 | NUR ---
REHAB NOTE - Patient chart reviewed. PT consult needed since patient has not had one since PT was discontinued in ICU.
[2019-10-07 12:20] VITALS: BP 133/77
--- NOTE | 2019-10-07 13:17 | NUR ---
I have reviewed this patient and I concur with the Shift Assessment completed by the Licensed Practical Nurse today this shift.
--- NOTE | 2019-10-07 15:36 | NUR ---
PT LYING IN BED WITH FAMILY AND FRIENDS AT BEDSIDE, CL IN REACH AND BED IN LOWEST POSITION CONTINUE WITH PLAN OF CARE
[2019-10-07 16:12] VITALS: BP 109/75
--- NOTE | 2019-10-07 16:18 | NUR ---
PT HAS LABORED BREATHING STATES SHE IS VERY STOPPED UP AND NEEDS MORE AIR FLOW, ADMINISTERED SALINE MIST AND FLONASE AND SAT PT UPRIGHT SO SHE CAN BREATHE BETTER, CONTINUE WITH PLAN OF CARE
[2019-10-07 19:30] VITALS: BP 131/71
--- NOTE | 2019-10-07 21:51 | NUR ---
MEDS GIVEN PER MAR. VSS. PT VERBALIZES FEELING BETTER.
[2019-10-08 05:31] VITALS: BP 150/85
[2019-10-08 07:01] LABS: HEMATOCRIT 35.8 % (36.0-48.0); HEMOGLOBIN 11.3 g/dL (12-16); MCH 30.4 pg (26.0-34.0); MCHC 31.6 g/dL (31.0-37.0); MCV 96.2 fL (80.0-100.0); MEAN PLATELET VOLUME 10.1 fL (7.4-10.4); PLATELET COUNT 324 10x3/uL (130-400); RBC 3.72 10x6/uL (4.00-5.40); RDW 15.8 % (11.5-14.5); WBC 16.8 10x3/uL (4.8-10.8)
[2019-10-08 07:11] LABS: ALBUMIN 3.2 g/dL (3.4-5.0); BILIRUBIN - TOTAL 0.37 mg/dL (0.2-1.3); CALCIUM 8.5 mg/dL (8.5-10.1); CARBON DIOXIDE 18.7 mmol/L (21.0-32.0); CREATININE - SERUM 1.3 mg/dL (0.6-1.3); PROTEIN - SERUM 6.8 g/dL (6.4-8.2)
[2019-10-08 07:19] LABS: ANION GAP 21.7 mmol/L (8-16); POTASSIUM - SERUM 6.4 mmol/L (3.5-5.1)
[2019-10-08 08:14] VITALS: BP 101/71
[2019-10-08 08:58] LABS: ANISOCYTOSIS OCC; LYMPHOCYTES 8 % (15-50); MONOCYTES 9 % (2-11); NEUTROPHILS 82 % (40-80); PLATELET ESTIMATE NORMAL
--- NOTE | 2019-10-08 12:26 | NUR ---
PT LYING IN BED, ENCOURAGED PT TO LAY WITH HEAD ELEVATED TO HELP WITH BREATHING, PT AGREEABLE, TREATED BLOOD SUGAR AND ADMINISTERED SCHEDULED MEDS, NO OTHER NEEDS VOICED FROM PT CONTINUE WITH PLAN OF CARE
[2019-10-08 12:51] VITALS: BP 146/76
--- NOTE | 2019-10-08 14:25 | NUR ---
Nutrition follow-up: Diet: regular PO intake ~25% of meals. Pt reports nose is stopped up and having issues breathing; has 2 nosse sprays ordered. Pt also c/o some nausea. Wt: 129# Labs reviewed; K elevated Will continue to encourage increased po intake and honor food preferencss; offer nutritional supplements. RDN following.
[2019-10-08 16:35] VITALS: BP 144/88
[2019-10-08 19:30] VITALS: BP 151/76
--- NOTE | 2019-10-08 23:54 | NUR ---
REC'D CHGE OF SHIFT WALKING ROUNDS.LYING ON LEFT SIDE YES CLOSED RESP. DEEP AND EVEN VISITOR AT BEDSIDE.NO RESP DIFFICULTY OBSERVED.02 5L NC.MONITOR SHOWING SINUS RHYTHM RATE 84. WILL CONTINUE TO MONITOR FOR ANY CHGES IN RESP STATUS AND FOLLOE CURRENT PLAN OF CARE.
[2019-10-09 00:30] VITALS: BP 147/80
[2019-10-09 05:25] VITALS: BP 151/84
[2019-10-09 05:31] LABS: BASOPHILS 0 % (0-2); EOSINOPHILS 0 % (0-7); HEMATOCRIT 35.1 % (36.0-48.0); HEMOGLOBIN 11.3 g/dL (12-16); IMMATURE GRANULOCYTES 1.4 % (0-5); LYMPHOCYTES 4.7 % (15-50); MCH 30.1 pg (26.0-34.0); MCHC 32.2 g/dL (31.0-37.0); MEAN PLATELET VOLUME 10.3 fL (7.4-10.4); MONOCYTES 4.6 % (2-11); NEUTROPHILS 89.3 % (40-80); PLATELET COUNT 371 10x3/uL (130-400); RBC 3.75 10x6/uL (4.00-5.40); RDW 15.8 % (11.5-14.5); WBC 15.4 10x3/uL (4.8-10.8)
[2019-10-09 05:54] LABS: ALBUMIN 3.2 g/dL (3.4-5.0); BILIRUBIN - TOTAL 0.47 mg/dL (0.2-1.3); CALCIUM 8.5 mg/dL (8.5-10.1); CARBON DIOXIDE 21.2 mmol/L (21.0-32.0); CREATININE - SERUM 1.2 mg/dL (0.6-1.3); POTASSIUM - SERUM 5.2 mmol/L (3.5-5.1); PROTEIN - SERUM 7.1 g/dL (6.4-8.2)
[2019-10-09 06:53] LABS: MCV 93.6 fL (80.0-100.0)
--- NOTE | 2019-10-09 07:17 | NUR ---
I have reviewed this patient and I concur with the Shift Assessment completed by the Licensed Practical Nurse today this shift.
[2019-10-09 08:43] VITALS: BP 130/87
[2019-10-09 12:43] VITALS: BP 125/83
[2019-10-09 16:54] VITALS: BP 115/79
[2019-10-09] MEDS ORDERED: SINGULAIR10 MG PO (18:15)
[2019-10-09] MEDS ORDERED: DALIRESP250 MCG PO (18:15)
[2019-10-09] MEDS ORDERED: PULMICORT0.5 MG/21 UPD (18:17)
[2019-10-09] MEDS ORDERED: SOLU-MEDRO40 MG/1 M1 IV (18:19)
[2019-10-09 19:30] VITALS: BP 117/81
[2019-10-10 00:30] VITALS: BP 121/76
--- NOTE | 2019-10-10 04:53 | NUR ---
REC'D DURING WALKING ROUNDS CHGE. OF SHIFT.SITTING IN BS CHAIR SON AT BEDSIDE.DENIES ANY DISCOMFORT AT PRESENT TIME. C/O SOME SOB ON MINIMAL ACTUVITY. O2 3L NC. WILL CONTINUE TO MONITOR FOR ANY CHGES. RESP. STATUS AND FOLLOW EWSP. STATUS AND FOLLOW CURRENT PLAN OF CARE.
[2019-10-10 05:30] VITALS: BP 118/72
--- NOTE | 2019-10-10 06:29 | NUR ---
I have reviewed this patient and I concur with the Shift Assessment completed by the Licensed Practical Nurse today this shift.
[2019-10-10 06:55] LABS: BASOPHILS 0.1 % (0-2); EOSINOPHILS 0 % (0-7); HEMATOCRIT 33.7 % (36.0-48.0); HEMOGLOBIN 11.2 g/dL (12-16); IMMATURE GRANULOCYTES 1.9 % (0-5); LYMPHOCYTES 8.5 % (15-50); MCH 30.4 pg (26.0-34.0); MCHC 33.2 g/dL (31.0-37.0); MEAN PLATELET VOLUME 10.7 fL (7.4-10.4); MONOCYTES 7.7 % (2-11); NEUTROPHILS 81.8 % (40-80); PLATELET COUNT 312 10x3/uL (130-400); RBC 3.69 10x6/uL (4.00-5.40); RDW 15.9 % (11.5-14.5); WBC 18.6 10x3/uL (4.8-10.8)
[2019-10-10 06:56] LABS: ALBUMIN 3.1 g/dL (3.4-5.0); ANION GAP 18.6 mmol/L (8-16); BILIRUBIN - TOTAL 0.43 mg/dL (0.2-1.3); CALCIUM 8.6 mg/dL (8.5-10.1); CARBON DIOXIDE 21.2 mmol/L (21.0-32.0); CREATININE - SERUM 1.3 mg/dL (0.6-1.3); POTASSIUM - SERUM 4.8 mmol/L (3.5-5.1); PROTEIN - SERUM 6.6 g/dL (6.4-8.2)
[2019-10-10 06:58] LABS: MCV 91.3 fL (80.0-100.0)
--- NOTE | 2019-10-10 07:30 | NUR ---
PT IS RESTING IN BED WITH EYES OPEN. RESPIRATIONS ARE EVEN AND UNLABORED. PT IS AAO X 4. PT DENIES PRESENCE OF N/V/PAIN/DYSPNEA. PT REQUESTS ASSISTNACE TO CHAIR. PT WITH DYSPNEA ON EXERTION. O2 VIA HFNC @ 3L. BED IS IN THE LOWEST POSITION. CALL LIGHT AND BEDSIDE TABLE ARE WITHIN REACH. SIDE RAILS X 2. PT DENIES FURTHER NEEDS. WILL CONT TO MONITOR.
[2019-10-10 08:19] VITALS: BP 145/82
--- NOTE | 2019-10-10 10:55 | MORECARE ---
CASE MANAGEMENT DISCHARGE SUMMARY PATIENT: STARR BRANDT UNIT: [id number] ADM DATE: 09/30/19 AGE: 84 : 36 SEX: F ROOM/BED: D.2237 AUTHOR: TONIADOC PHYSICIAN: REFERRING PHYSICIAN: JANA COBOS MD DATE OF SERVICE: 10/10/19 Discharge Plan Patient Name: STARR BRANDT Facility: [facility]:[place] : 1935 Planned Disposition: Home Anticipated Discharge Date: 10/10/19 Discharge Date: Expected LOS: 10 Initial Reviewer: [email or web address] Initial Review Date: 10/05/2019 Generated: 10/10/19 11:55 am DCP- Discharge Planning Updated by [email or web address]: Regi Gómez on 10/05/19 4:[address] Patient Name: STARR BRANDT Admission Status: ER Accout number: [id number] Admission Date: 09-30-2019 : 1935 Admission Diagnosis: Attending: JANA COBOS Current LOS: 5 Anticipated DC Date: Planned Disposition: Home Primary Insurance: MEDICARE A & B Discharge Planning Comments: CM met with patient to complete initial dc planning assessment. CM educated patient on the CM role and verbal consent given by patient to complete assessment. Patient lives at home with her son where she is independent with her care. At discharge patient plans to return home and feels this is a safe discharge. CM discussed availability of home health, rehab services, and medical equipment. Family will drive her home on discharge . Patient has a cane and walker. Patient denied known discharge needs at this time. CM will continue to follow and will assist as needed with dc plans/needs. Marriage Therapist: Regi Gómez DCP- Discharge Planning Updated by [email or web address]: Regi Gómez on 10/04/19 11:[address] CM attempted to see patient regarding discharge planning / needs. Patient is currently having a procedure at bedside. CM will come back at a later time to evaluate discharge needs. CM will continue to follow and assist as needed with discharge planning / needs DCPIA - Discharge Planning Initial Assessment Updated by [email or web address]: Regi Gómez on 10/05/19 5:11 pm * Is the patient Alert and Oriented? Yes * How many steps to enter\exit or inside your home? ramp * PCP W[facility] * Pharmacy [facility] * Preadmission Environment Home with Family * ADLs Independent * Other Equipment WALKER, W/C * List name and contact numbers for known caregivers / representatives who currently or will assist patient after discharge: ARIELLE BRANDT JR [phone], * Verbal permission to speak to the caregivers and representatives has been obtained from the patient. Yes * Community resources currently utilized None * Additional services required to return to the preadmission environment? No * Can the patient safely return to the preadmission environment? Yes * Has this patient been hospitalized within the prior 30 days at any hospital? No Last DP export: 10/05/19 4:16 Patient Name: STARR BRANDT Page 16051 at 1055 All edits/amendments must be made on the electronic document DICTATION DATE: 10/10/191054 CHEMISTRY PHYSICS TEACHER: ERINN 10/10/19 1055 RPT#: [id number] DC DATE: STATUS: ADM IN [facility] [address] [place] [address] END OF REPORT
--- NOTE | 2019-10-10 11:02 | MORECARE ---
CASE MANAGEMENT DISCHARGE SUMMARY PATIENT: STARR BRANDT UNIT: [id number] ADM DATE: 09/30/19 AGE: 84 : 36 SEX: F ROOM/BED: D.2237 AUTHOR: ANTONIO RANDALL PHYSICIAN: REFERRING PHYSICIAN: JANA COBOS MD DATE OF SERVICE: 10/10/19 Discharge Plan Patient Name: STARR BRANDT Facility: [facility]:[place] : 1935 Planned Disposition: Home Anticipated Discharge Date: 10/10/19 Discharge Date: Expected LOS: 10 Initial Reviewer: [email or web address] Initial Review Date: 10/05/2019 Generated: 10/10/19 12:02 pm Comments DCP- Discharge Planning Updated by [email or web address]: Aster Plascencia on 10/10/19 9:[address] PATIENT FOR DISCHARGE TO REHAB 10/09/19. TC TO REHAB UNIT THIS AM. CM SPOKE WITH [facility]. SHE STATES THEY WERE EXPECTING THE PATIENT 10/09. QUESTION REGARDING PULMONARY MEDS. CLARIFIACTION WAS COMPLETED PM BY DR ROCHE. THE PLAN IS FOR DISCHARGE TO REHAB TODAY. CM SPOKE WITH THE PATIENT. SHE IS IN AGREEMENT WITH THE PLAN. CM EXPLAINED THE DISCHARGE IMM. FORM SERVED. PATIENT SIGNED , ORIGINAL SIGNED FORM TO THE PATIENT. ORIGINAL SIGNED FORM TO THE HARD COPY CHART. DCP- Discharge Planning Updated by [email or web address]: Regi Gómez on 10/05/19 4:[address] Patient Name: STARR BRANDT Admission Status: ER Accout number: [id number] Admission Date: 09-30-2019 : 1935 Admission Diagnosis: Attending: JANA COBOS Current LOS: 5 Anticipated DC Date: Planned Disposition: Home Primary Insurance: MEDICARE A & B Discharge Planning Comments: CM met with patient to complete initial dc planning assessment. CM educated patient on the CM role and verbal consent given by patient to complete assessment. Patient lives at home with her son where she is independent with her care. At discharge patient plans to return home and feels this is a safe discharge. CM discussed availability of home health, rehab services, and medical equipment. Family will drive her home on discharge . Patient has a cane and walker. Patient denied known discharge needs at this time. CM will continue to follow and will assist as needed with dc plans/needs. Middle School Music Teacher: Regi Gómez DCP- Discharge Planning Updated by [email or web address]: Regi Gómez on 10/04/19 11:[address] CM attempted to see patient regarding discharge planning / needs. Patient is currently having a procedure at bedside. CM will come back at a later time to evaluate discharge needs. CM will continue to follow and assist as needed with discharge planning / needs DCPIA - Discharge Planning Initial Assessment Updated by [email or web address]: Regi Gómez on 10/05/19 5:11 pm * Is the patient Alert and Oriented? Yes * How many steps to enter\exit or inside your home? ramp * PCP [facility] * Pharmacy [facility] * Preadmission Environment Home with Family * ADLs Independent * Other Equipment WALKER, W/C * List name and contact numbers for known caregivers / representatives who currently or will assist patient after discharge: ARIELLE RIKKI MELISSA [phone], * Verbal permission to speak to the caregivers and representatives has been obtained from the patient. Yes * Community resources currently utilized None * Additional services required to return to the preadmission environment? No * Can the patient safely return to the preadmission environment? Yes * Has this patient been hospitalized within the prior 30 days at any hospital? No Last DP export: 10/10/19 9:55 am Patient Name: STARR BRANDT Page [phone] at 1102 All edits/amendments must be made on the electronic document DICTATION DATE: 10/10/191101 LIQUID COMPOUNDER: ERINN 10/10/19 110 RPT#: [id number] DC DATE: STATUS: ADM IN [facility] [address] [place] [address] END OF REPORT
--- NOTE | 2019-10-10 11:03 | NUR ---
REPORT CALLED TO NITZA BETHEA AT REHAB. NO FURTHER QUESTIONS/CONCERNS.
--- NOTE | 2019-10-10 11:09 | NUR ---
ALL DISCHARGE INSTRUCTIONS COVERED WITH PT. PT DENIES FURTHER QUESTIONS/CONCNERS/NEEDS AT THIS TIME. PIV TO RIGHT WRIST INPLACE DUE TO MEDICATION ORDERS. SEE MED LIST. ALL DISCAHRGE PAPERS SIGNED. PT TO NOTIFY NURSE WHEN READY FOR TRANSPORT TO REHAB ROOM 1108A.
--- NOTE | 2019-10-10 11:18 | NUR ---
PT TRANSPORTED FROM ROOM TO REHAB VIA WHEELCHAIR ESCORTED BY HOSPITAL STAFF. PT DENIES FURTHER QUESTIONS/CONCERNS/NEEDS AT THIS TIME. PT REPORTS THAT SHE DOES HAVE ALL BELONGINGS.
--- NOTE | 2019-10-10 12:00 | NUR ---
PT TRANSPORTED FROM ROOM VIA WHEELCHAIR TO REHAB. PT REPORTS THAT SHE HAS ALL BELONGINGS. PT DENIES FURTHER QUESTIONS/CONCENRS/NEEDS.
--- NOTE | 2019-10-12 16:52 | MORECARE ---
CASE MANAGEMENT DISCHARGE SUMMARY PATIENT: STARR BRANDT UNIT: [id number] ADM DATE: 09/30/19 AGE: 84 : 36 SEX: F ROOM/BED: D.2237 AUTHOR: TONIADOC PHYSICIAN: REFERRING PHYSICIAN: JANA COBOS MD DATE OF SERVICE: 10/12/19 Discharge Plan Patient Name: STARR BRANDT Facility: [facility]:[place] : 1935 Planned Disposition: Home Anticipated Discharge Date: 10/10/19 Discharge Date: 10/10/2019 Expected LOS: 10 Initial Reviewer: [email or web address] Initial Review Date: 10/05/2019 Generated: 10/12/19 5:52 pm Comments DCP- Discharge Planning Updated by [email or web address]: Aster Plascencia on 10/10/19 9:[address] PATIENT FOR DISCHARGE TO REHAB 10/09/19. TC TO REHAB UNIT THIS AM. CM SPOKE WITH [facility]. SHE STATES THEY WERE EXPECTING THE PATIENT 10/09. QUESTION REGARDING PULMONARY MEDS. CLARIFIACTION WAS COMPLETED PM BY DR ROCHE. THE PLAN IS FOR DISCHARGE TO REHAB TODAY. CM SPOKE WITH THE PATIENT. SHE IS IN AGREEMENT WITH THE PLAN. CM EXPLAINED THE DISCHARGE IMM. FORM SERVED. PATIENT SIGNED , ORIGINAL SIGNED FORM TO THE PATIENT. ORIGINAL SIGNED FORM TO THE HARD COPY CHART. DCP- Discharge Planning Updated by [email or web address]: Regi Gómez on 10/05/19 4:[address] Patient Name: STARR BRANDT Admission Status: ER Accout number: [id number] Admission Date: 09-30-2019 : 1935 Admission Diagnosis: Attending: JANA COBOS Current LOS: 5 Anticipated DC Date: Planned Disposition: Home Primary Insurance: MEDICARE A & B Discharge Planning Comments: CM met with patient to complete initial dc planning assessment. CM educated patient on the CM role and verbal consent given by patient to complete assessment. Patient lives at home with her son where she is independent with her care. At discharge patient plans to return home and feels this is a safe discharge. CM discussed availability of home health, rehab services, and medical equipment. Family will drive her home on discharge . Patient has a cane and walker. Patient denied known discharge needs at this time. CM will continue to follow and will assist as needed with dc plans/needs. Fbi Profiler: Regi Gómez DCP- Discharge Planning Updated by [email or web address]: Regi Gómez on 10/04/19 11:[address] CM attempted to see patient regarding discharge planning / needs. Patient is currently having a procedure at bedside. CM will come back at a later time to evaluate discharge needs. CM will continue to follow and assist as needed with discharge planning / needs DCPIA - Discharge Planning Initial Assessment Updated by [email or web address]: Regi Gómez on 10/05/19 5:11 pm * Is the patient Alert and Oriented? Yes * How many steps to enter\exit or inside your home? ramp * PCP [facility] * Pharmacy [place] * Preadmission Environment Home with Family * ADLs Independent * Other Equipment WALKER, W/C * List name and contact numbers for known caregivers / representatives who currently or will assist patient after discharge: ARIELLE RIKKI MELISSA [phone], * Verbal permission to speak to the caregivers and representatives has been obtained from the patient. Yes * Community resources currently utilized None * Additional services required to return to the preadmission environment? No * Can the patient safely return to the preadmission environment? Yes * Has this patient been hospitalized within the prior 30 days at any hospital? No Last DP export: 10/10/19 10:02 am Patient Name: STARR BRANDT Page [phone] at 1652 All edits/amendments must be made on the electronic document DICTATION DATE: 10/12/191651 ENZYME CHEMIST: ERINN 10/12/191651 RPT#: [id number] DC DATE:10/10/19 STATUS: DIS IN [facility] [address] [place] [address] END OF REPORT
== END 2019-10-10 12:54 | DRG 190 ==
LOC: D.ER 16:52 → D.MS 18:44 → D.ICU 18:44 → D.MS 10-05 17:06
PROVIDERS: Family Medicine; ADMIT Internal Medicine Nephrology; ATTEND Internal Medicine Nephrology
DX: J43.9 Emphysema, unspecified (principal); I50.43 Acute on chronic combined systolic (congestive) and diastolic (congestive) heart failure; J18.9 Pneumonia, unspecified organism; E44.0 Moderate protein-calorie malnutrition; F17.213 Nicotine dependence, cigarettes, with withdrawal; J90 Pleural effusion, not elsewhere classified; E87.1 Hypo-osmolality and hyponatremia; J98.11 Atelectasis; J20.9 Acute bronchitis, unspecified; D64.9 Anemia, unspecified; G62.9 Polyneuropathy, unspecified; E78.5 Hyperlipidemia, unspecified; F32.9 Major depressive disorder, single episode, unspecified; M19.90 Unspecified osteoarthritis, unspecified site; E03.9 Hypothyroidism, unspecified; I11.0 Hypertensive heart disease with heart failure

== ENCOUNTER 2019-10-09 15:59 | Inpatient (IN) | payer MEDICARE, OTHER ==
[~2019-10-09] VITALS: Ht 149.9 cm; Wt 56.7 kg
[~2019-10-09 15:59] MED LIST changes: +ALBUTEROL SULF8.5 GM INH; +AZOR 10-20 MG T1 TAB PO; +COLACE100 MG PO; +LEUCOVORIN CALCI5 MG PO; +MUCINEX600 MG PO; +PLAQUENIL PO; +STERAPRED DS 1010 MG PO; +TESSALON PERLE100 MG PO; +ZPAK PO
[2019-10-09] MEDS ORDERED: SINGULAIR10 MG PO (18:15)
[2019-10-09] MEDS ORDERED: DALIRESP250 MCG PO (18:15)
[2019-10-09] MEDS ORDERED: PULMICORT0.5 MG/21 UPD (18:17)
[2019-10-09] MEDS ORDERED: SOLU-MEDRO40 MG/1 M1 IV (18:19)
[2019-10-10 13:23] VITALS: BP 152/85; BMI 23.0
[2019-10-10 19:31] VITALS: BP 134/80
--- NOTE | 2019-10-10 19:37 | NUR ---
AWAKE AND ALERT. RESPIRATIONS SLIGHTLY LABORED WITH O2/3L ON PER NASAL CANNULA. ASSISTED TO BATHROOM AND BACK TO BED. NO ACUTE DISTRESS NOTED. CALL LIGHT IN REACH.
--- NOTE | 2019-10-11 00:22 | NUR ---
RESTING IN BED WITH RESPIRATIONS UNALBORED. NO DISTRESS NOTED. CALL LIGHT IN REACH.
--- NOTE | 2019-10-11 02:25 | NUR ---
ASSISTED TO BATHROOM AND BACK TO BED. O2/3L ON PER NASAL CANNULA. NO ACUTE DISTRESS NOTED.
--- NOTE | 2019-10-11 05:02 | NUR ---
QUIET HOURS. CONTINUES ON O2/3L PER NASAL CANNULA. ASSISTED TO BATHROOM AND BACK TO BED. NO ACUTE CHANGES IN CONDITION THIS SHIFT.
[2019-10-11 08:00] VITALS: BP 113/78
--- NOTE | 2019-10-11 08:03 | NUR ---
PATIENT IS ALERT/ORIENT. CALL LIGHT WITHIN REACH. VOICES NO NEEDS AT THIS TIME. WILL CONTINUE WITH PLAN OF CARE
--- NOTE | 2019-10-11 10:19 | NUR ---
PATIENT WORKING WITH PHYSICAL THERAPIST. HELPED WITH A SHOWER
[2019-10-11 13:05] VITALS: Ht 149.9 cm; Wt 56.7 kg
--- NOTE | 2019-10-11 15:11 | NUR ---
PATIENT ADMITTED TO REHAB FROM ACUTE FLOOR. DR. WATSON IS HER PCP. DISCHARGE PLANS ARE FOR PATIENT TO RETURN BACK TO HER HOME. DME AT HOME IS A CANE AND A WALKER. WILL CONTINUE TO FOLLOW WITH PATIENT.
--- NOTE | 2019-10-11 15:20 | NUR ---
PRN ANTIVAN GIVEN FOR ANXIEITY, SOB
--- NOTE | 2019-10-11 19:34 | NUR ---
AWAKE AND ALERT. RESPIRAITONS SLIGHTLY LABORED AND NOTED SHORTNESS OF BREATH ON O2/3L PER NASAL CANNULA. ASSISTED TO SIT UP ON SIDE OF BED. NOTED WHEEZING. ENCOURAGED TO SLOW BREATHING. PT IS COMPLIANT. O2 SATURATION 92%. FAN PROVIDED TO PATIENT PER C/O FEELING HOT. CALMING NOW FAN BLOWING ON HER. WILL CONTINUE TO MONITOR.
[2019-10-11 20:24] VITALS: BP 129/72
--- NOTE | 2019-10-12 00:02 | NUR ---
RESTING IN BED WITH O2/3L ON PER NASAL CANNULA. NO DISTRESS NOTED.
[2019-10-12 01:26] VITALS: BP 142/71
--- NOTE | 2019-10-12 05:28 | NUR ---
RESTING IN BED. O2/3L ON PER NASAL CANNULA. NO ACUTE CHANGES IN CONDITION THIS SHIFT. CALL LIGHT IN REACH.
--- NOTE | 2019-10-12 06:41 | NUR ---
RESPIRATORY THERAPY STATED HE UPPED PATIENT O2/6L . NEW ORDER FOR ALBUTERAL QID AND DC PULMOCORT PRN.
[2019-10-12 07:21] VITALS: BP 139/67
--- NOTE | 2019-10-12 09:30 | NUR ---
AM MEDS ADMINISTERED, DENIES NEEDS, WCTM.
--- NOTE | 2019-10-12 16:30 | NUR ---
PT ALERT, IN W/C. PM MEDS GIVEN. WCTM.
--- NOTE | 2019-10-12 19:15 | NUR ---
PT IS RESTING IN HER ROOM SITTING ON THE SIDE OF ER BED. ALERT AND ORIENTED X 3. DENIES ACUTE PAIN OR DISCOMFORT AT THIS TIME. NO NEEDS VOICED. O2 IS ON @ 6LPM PER HIGH FLOW CANNULA. PT STATES SHE GETS SOB AT TIMES, BUT NO ACUTE DISTRES NOTED. VSS. SR'S ARE UP X 2 IN BED. CALL LIGHT AND BEDSIDE TABLE ARE WTIHIN EASY REACH.
[2019-10-12 19:53] VITALS: BP 143/70
--- NOTE | 2019-10-12 21:02 | NUR ---
PT IS LYING IN BED WITH EYES OPEN. NO NEEDS VOICED. NO DISTRESS NOTED.
--- NOTE | 2019-10-13 01:51 | NUR ---
I have reviewed this patient and I concur with the Shift Assessment completed by the Licensed Practical Nurse today this shift.
--- NOTE | 2019-10-13 04:56 | NUR ---
RESTING IN BED WITH EYES CLOSED.
[2019-10-13 08:00] VITALS: BP 116/62
--- NOTE | 2019-10-13 09:30 | NUR ---
PT AM MEDS ADMINISTERED. PT RESTING IN BED, DENIES NEEDS. WCTM.
--- NOTE | 2019-10-13 19:30 | NUR ---
PT IS RESTING IN BED WITH EYES OPEN. ALERT AND ORIENTED X 3. VOICED COMPLAINT OF GENERAL MALAISE, AND SWELLING IN HER LOWER LEGS AND FEET. PT HAS A RASH TO BILATERAL CALVES. SHE DENIES ITCHING. DAUGHTER IS VERY CONCERNED. PT WEIGHED PER HER REQUEST. O2 IS ON @ 6LPM PER HIGH FLOW NASAL CANNULA. NO SOB NOTED. LUNG SOUNDS ARE CLEAR. SR'S ARE UP X 2 IN BED. CALL LIGHT AND BEDSIDE TABLE ARE WITHIN EASY REACH.
--- NOTE | 2019-10-13 21:31 | NUR ---
PT IS RESTING QUIETLY IN BED WITH EYES CLOSED. RESPS ARE EVEN AND UNLABORED. NO ACUTE DISTRESS NOTED.
--- NOTE | 2019-10-13 23:23 | NUR ---
I have reviewed this patient and I concur with the Shift Assessment completed by the Licensed Practical Nurse today this shift.
--- NOTE | 2019-10-14 00:02 | NUR ---
RESTING IN BED WITH EYES CLOSED.
--- NOTE | 2019-10-14 01:52 | NUR ---
RESTING IN BED WITH EYES CLOSED.
--- NOTE | 2019-10-14 04:52 | NUR ---
PT ASSISTED TO THE BATHROOM WITH MOD ASSIST. NO FURTHER NEEDS VOICED.
[2019-10-14 08:00] VITALS: BP 127/70
--- NOTE | 2019-10-14 08:36 | NUR ---
PT SATTING 99 PERCENT ON 5 LPM HF. PLACED PT ON 4 LPM HF.
--- NOTE | 2019-10-14 19:31 | NUR ---
PT RESTING IN BED WITH EYES CLOSED. NO ACUTE DISTRESS NOTED.
[2019-10-14 19:50] VITALS: BP 138/74
--- NOTE | 2019-10-14 22:08 | NUR ---
PT RESTING IN BED WITH EYES CLOSED. NO DISTRESS NOTED. ASSISTED TO THE BATHROOM PRN. LEGS ELEVATED UP ON PILLOWS IN BED. NO COMPLAINTS VOICED.
--- NOTE | 2019-10-15 02:43 | NUR ---
I have reviewed this patient and I concur with the Shift Assessment completed by the Licensed Practical Nurse today this shift.
--- NOTE | 2019-10-15 06:14 | NUR ---
PT ASSISTED TO THE BATHROOM WITH SBA. NO FURTHER NEEDS VOICED.
[2019-10-15 06:31] LABS: BASOPHILS 0 % (0-2); EOSINOPHILS 0.1 % (0-7); HEMATOCRIT 33.3 % (36.0-48.0); HEMOGLOBIN 10.7 g/dL (12-16); IMMATURE GRANULOCYTES 0.5 % (0-5); LYMPHOCYTES 2.7 % (15-50); MCH 29.9 pg (26.0-34.0); MCHC 32.1 g/dL (31.0-37.0); MEAN PLATELET VOLUME 11.1 fL (7.4-10.4); MONOCYTES 2.5 % (2-11); NEUTROPHILS 94.2 % (40-80); RBC 3.58 10x6/uL (4.00-5.40); RDW 16.4 % (11.5-14.5); WBC 17.6 10x3/uL (4.8-10.8)
[2019-10-15 06:36] LABS: PLATELET COUNT 228 10x3/uL (130-400)
[2019-10-15 07:03] LABS: ANION GAP 15.6 mmol/L (8-16); CALCIUM 8.3 mg/dL (8.5-10.1); CARBON DIOXIDE 22.8 mmol/L (21.0-32.0); POTASSIUM - SERUM 5.4 mmol/L (3.5-5.1)
[2019-10-15 07:59] VITALS: BP 109/49
--- NOTE | 2019-10-15 08:03 | NUR ---
PATIENT IS ALERT/ORIENT. SITTING UP ON THE SIDE OF THE BED TO EAT BREAKFAST. CALL LIGHT WITHIN REACH. VOICES NO NEEDS AT THIS TIME. WILL CONTINUE WITH PLAN OF CARE
--- NOTE | 2019-10-15 10:19 | NUR ---
PATIENT IN REHAB ROOM. WORKING WITH PHYSICAL THERAPIST. DENIES ANY PAIN/DISC AT THIS TIME.
--- NOTE | 2019-10-15 12:23 | NUR ---
Nutrition Follow-up: Diet: Regular + Boost with meals PO intake: ~63% x last 6 meals recorded; pt was asleep at time of RD visit. Last BM: 10/12/19 x 2. WT: 125# (10/15/19); Admit wt: 114# (10/10/19) Meds noted: lasix, methylprednisone. Labs noted: K 5.4, Glu 117. Continue current diet and oral nutrition supplements. RD following.
--- NOTE | 2019-10-15 17:43 | NUR ---
RESPITORY THERAPIST IN PATIENTS ROOM. ADDING HUMITIFER TO OXYGEN SET UP
--- NOTE | 2019-10-15 19:51 | NUR ---
REC'D. CHGE OF SHIFT WALKING ROUNDS. ASSISTED TO BATHRM.MODERATE ASSIST. 02 4L NC WITH HUMIDIFIER.WITH EXT.AND BACK TO BED.ABIGAIL WELL. WILL CONTINUE TO MONITOR FOR ANY CHGES. IN CURRENT STATUS AND FOLLOW CURRENT PLAN OF CARE.
[2019-10-15 20:00] VITALS: BP 163/61
--- NOTE | 2019-10-16 00:01 | NUR ---
02 SATS 98% STATES FEELS LITTLE SOB. SITTING ON SIDE OF BED EXERCISE BREATHING DONE TO SLOW BREATHING DOWN. ATIVAN 0.5MG GIVEN PO FOR ANXIETY NO RESP. DISTRESS OBSERVED.
--- NOTE | 2019-10-16 03:49 | NUR ---
I have reviewed this patient and I concur with the Shift Assessment completed by the Licensed Practical Nurse today this shift.
[2019-10-16 07:21] LABS: ANION GAP 13.3 mmol/L (8-16); CALCIUM 8.5 mg/dL (8.5-10.1); CARBON DIOXIDE 24.8 mmol/L (21.0-32.0); CREATININE - SERUM 0.9 mg/dL (0.6-1.3); POTASSIUM - SERUM 5.1 mmol/L (3.5-5.1)
[2019-10-16 08:00] VITALS: BP 140/71
--- NOTE | 2019-10-16 09:30 | NUR ---
AM MEDS ADMINISTERED. PT DENIES NEEDS. WCTM.;
--- NOTE | 2019-10-16 19:56 | NUR ---
PATIENT RECEIVED LAYING IN BED. INTRODUCED SELF & VITAL SIGNS DONE. CALL LIGHT WITHIN REACH. WILL CONTINUE TO MONITOR.
[2019-10-16 20:03] VITALS: BP 116/62
--- NOTE | 2019-10-16 20:05 | NUR ---
AWAKE AND ALERT. RESTING IN BED WITH O2/4L ON PER HIGH FLOW. NO ACUTE DISTRESS NOTED. CALL LIGHT IN REACH.
--- NOTE | 2019-10-17 00:18 | NUR ---
SLEEPING WITH NO RESPIRATORY DISTRESS NOTED. CALL LIGHT IN REACH.
--- NOTE | 2019-10-17 02:29 | NUR ---
CONTINUES RESTING IN BED WITH RESPIRATIONS UNLABORED. O2/4L ON PER HIGH FLOW NASAL CANNULA. NO DISTRESS NOTED. CALL LIGHT IN REACH.
--- NOTE | 2019-10-17 05:08 | NUR ---
QUIET HOURS. NO ACUTE CHANGES IN CONDITION THIS SHIFT. O2/4L ON PER HF. NO ACUTE DISTRESS NOTED.
[2019-10-17 08:00] VITALS: BP 124/59
[2019-10-17 08:02] LABS: BASOPHILS 0.1 % (0-2); EOSINOPHILS 0.2 % (0-7); HEMATOCRIT 35.8 % (36.0-48.0); HEMOGLOBIN 11.6 g/dL (12-16); IMMATURE GRANULOCYTES 0.2 % (0-5); LYMPHOCYTES 3.9 % (15-50); MCH 30.4 pg (26.0-34.0); MCHC 32.4 g/dL (31.0-37.0); MCV 93.7 fL (80.0-100.0); MEAN PLATELET VOLUME 10.9 fL (7.4-10.4); NEUTROPHILS 92.6 % (40-80); RBC 3.82 10x6/uL (4.00-5.40); RDW 16.6 % (11.5-14.5); WBC 12.5 10x3/uL (4.8-10.8)
[2019-10-17 08:07] LABS: PLATELET COUNT 179 10x3/uL (130-400)
--- NOTE | 2019-10-17 08:10 | NUR ---
PT RESTING IN BED WITH EYES OPEN CALL LIGHT IN REACH WILL MONITER
[2019-10-17 08:15] LABS: ANION GAP 15.8 mmol/L (8-16); CALCIUM 8.4 mg/dL (8.5-10.1); CARBON DIOXIDE 22.1 mmol/L (21.0-32.0); CREATININE - SERUM 0.8 mg/dL (0.6-1.3); POTASSIUM - SERUM 4.9 mmol/L (3.5-5.1)
--- NOTE | 2019-10-17 16:40 | NUR ---
CARE TEAM MEETING: HAD TELEPHONE CONFERENCE WITH DAUGHTER (MARC GARCIA) HER QUESTIONS AND CONCERNS WERE ADDRESSED. TENATIVE DISCHARGE DATE IS 10/23/2019 TO HER HOME. WILL CONTINUE TO FOLLOW WITH PATIENT.
--- NOTE | 2019-10-17 18:38 | NUR ---
PT RESTING IN BED WITH EYES OPES OPEN CALL LIGHT IN REACH NO PROBLEMS WILL MONITER
[2019-10-17 20:03] VITALS: BP 91/48
--- NOTE | 2019-10-17 20:03 | NUR ---
GREETED PATIENT AND INTRODUCED MYSELF HER NURSE. ASSISTED PATIENT TO BATHROOM USING WHEELCHAIR. BACK TO BED AND REPOSITIONED FOR COMFORT. O2 AT 4L HIGH FLOW IN USE. RESPIRATIONS EVEN. NO S/S OF DISTRESS. PT. IS AOX4. FAMILY MEMBER AT BEDSIDE. DENIES ANY FURTHER NEEDS AT THIS TIME. CALL LIGHT IN REACH.
--- NOTE | 2019-10-18 00:38 | NUR ---
PT. RESTING QUIETLY WITH EYES CLOSED. O2 AT 4L VIA HIGH FLOW NC. RESPIRATIONS EVEN. NO S/S OF DISTRESS. CALL LIGHT IN REACH.
--- NOTE | 2019-10-18 03:37 | NUR ---
PT. RESTING QUIETLY WITH EYES CLOSED. O2 AT 4L IN USE HIGH FLOW.RESPIRATIONS EVEN. NO S/S OF DISTRESS. CALL LIGHT IN REACH.
[2019-10-18 08:00] VITALS: BP 117/57
--- NOTE | 2019-10-18 10:45 | NUR ---
PT PARTICIPATING IN THERAPY, DENIES NEEDS. WCTM.
--- NOTE | 2019-10-18 19:45 | NUR ---
AWAKE AND ALERT. RESPIRATIONS UNLABORED WITH O2/2L ON PER NASAL CANNULA. NO ACUTE DISTRESS NOTED. CALL LIGHT IN REACH.
[2019-10-18 19:52] VITALS: BP 126/61
--- NOTE | 2019-10-19 00:23 | NUR ---
RESTING AFTER EATING A SNACK. NO RESPIRATORY DISTRESS NOTED. CALL LIGHT IN REACH.
--- NOTE | 2019-10-19 02:28 | NUR ---
C/O SOME SHORTNESS OF BREATH AFTER GOING TO BATHROOM. O2 SATURATION 93% ON O2/2L O2 INCRESED TO 3L FOR NOW. WILL NONITOR.
--- NOTE | 2019-10-19 05:12 | NUR ---
QUIET HOURS. RESTING NOW WITH NO RESPIRATORY DISTRESS NOTED. O2/3L ON PER NASAL CANNULA. CALL LIGHT IN REACH.
--- NOTE | 2019-10-19 08:00 | NUR ---
PATIENT IS ALERT/ORIENT. EATTING BREAKFAST DOWN IN THERAPY ROOM. VOICES NO NEEDS AT THIS TIME. WILL CONTINUE WITH PLAN OF CARE
[2019-10-19 08:07] VITALS: BP 133/65
[2019-10-19 08:11] LABS: BASOPHILS 0 % (0-2); HEMOGLOBIN 11.5 g/dL (12-16); IMMATURE GRANULOCYTES 0.3 % (0-5); LYMPHOCYTES 5.3 % (15-50); MCH 30.3 pg (26.0-34.0); MCHC 32.9 g/dL (31.0-37.0); MCV 92.3 fL (80.0-100.0); MEAN PLATELET VOLUME 10.9 fL (7.4-10.4); MONOCYTES 3.6 % (2-11); NEUTROPHILS 89.8 % (40-80); PLATELET COUNT 147 10x3/uL (130-400); RBC 3.79 10x6/uL (4.00-5.40); RDW 16.3 % (11.5-14.5); WBC 11.5 10x3/uL (4.8-10.8)
[2019-10-19 08:19] LABS: ANION GAP 11.9 mmol/L (8-16); CALCIUM 8.2 mg/dL (8.5-10.1); CARBON DIOXIDE 29.3 mmol/L (21.0-32.0); CREATININE - SERUM 0.8 mg/dL (0.6-1.3); POTASSIUM - SERUM 4.2 mmol/L (3.5-5.1)
--- NOTE | 2019-10-19 11:30 | NUR ---
SPEECH THERAPIST IN ROOM. WORKING WITH PATIENT AT THIS TIME.
--- NOTE | 2019-10-19 12:39 | NUR ---
NUTRITION FOLLOW UP: INTERVIEW: Met with patient. Speech Therapist and patient's in the room. She stated her appetite has been poor and it has been hard for her to eat foods due to thrush and pain in her mouth. She stated she cannot have spicy foods, hot foods, and cold foods. She stated that chewing also causes her mouth to hurt. Changed diet to Mechanical Soft and added vanilla ensure supplement. DIET: Mechanical Soft PO INTAKE: 66.67% avg x 9 meals WT: 125 lbs BM: x 1 on 10/18 SIG MEDS: Lasix, methotrexate, Colace SIG LABS: Na- 132(L), Chloride-95(L), Calcium- 8.2(L) WILL CONTINUE TO MONITOR PATIENT [facility] CLINICAL DIETITIAN FOLLOWING
--- NOTE | 2019-10-19 15:49 | NUR ---
PATIENT HELPED INTO BATHROOM. MIN ASST. PATIENT REFUSED SHOWER AT THIS TIME. STATED SHE IS TOO TIERD AFTER THERAPY. REQUESTED TO GO BACK TO BED
--- NOTE | 2019-10-19 19:16 | NUR ---
AWAKE AND ALERT. TALKING WITH SON. SHE STATES SHE IS FEELING A LITTLE ANXIOUS TONIGHT AND WANTS SOMETHING FOR IT AT HS. I TOLD HER I WOULD GIVEN HER ANXIETY MED WITH HS MEDS. SHE VOICED UNDERSTANDING. O2/3L ON PER NASAL CANNULA. NO ACUTE DISTRESS NOTED.
[2019-10-19 20:34] VITALS: BP 106/52
--- NOTE | 2019-10-20 00:29 | NUR ---
RESTING QUIETLY IN BED. O2/3L ON PER NASAL CANNULA. NO DISTRESS NOTED.
--- NOTE | 2019-10-20 03:12 | NUR ---
ASSISTED TO BATHROOM AND BACK TO BED. NO ACUTE DISTRESS NOTED.
--- NOTE | 2019-10-20 05:29 | NUR ---
SHOWER GIVEN. TOLERATED WELL. SITTING IN WHEELCHAIR DRYING HAIR. O2/3L ON PER NASAL CANNULA. NO ACUTE DISTRESS NOTED.
[2019-10-20 08:00] VITALS: BP 88/62
--- NOTE | 2019-10-20 08:00 | NUR ---
PATIENT IS ALERT/ORIENT. SITTING UP IN WHEELCAIR FOR BREAKFAST. CALL LIGHT WITHIN REACH. VOICES NO NEEDS AT THIS TIME. WILL CONTINUE WITH PLAN OF CARE
--- NOTE | 2019-10-20 09:34 | NUR ---
PATIENT IN REHAB ROOM. WORKING WITH PHYSICAL THERAPIST. DENIES ANY PAIN/DISC AT THIS TIME.
--- NOTE | 2019-10-20 16:45 | NUR ---
I have reviewed this patient and I concur with the Shift Assessment completed by the Licensed Practical Nurse today this shift.
--- NOTE | 2019-10-20 17:03 | NUR ---
PATIENT HAS VISITORS IN ROOM. RESTING IN BED. VOICES NO NEEDS AT THIS TIME.
[2019-10-20 19:26] VITALS: BP 107/57
--- NOTE | 2019-10-20 19:33 | NUR ---
AWAKE AND ALERT. ASSITED TO BATHROOM AND BACK TO BED. O2/3L ON PER NASAL CANNULA. NO ACUTE DISTRESS NOTED. CALL LIGHT IN REACH.
--- NOTE | 2019-10-21 01:42 | NUR ---
CONTINUES SLEEPING WITH RESPIRATIONS UNALBORED. NO DISTRESS NOTED.
--- NOTE | 2019-10-21 05:51 | NUR ---
QUIET HOURS. SON IS HERE NOW VISITING. O2/3L ON PER NASAL CANNULA. NO DISTRESS NOTED.
[2019-10-21 08:00] VITALS: BP 118/59
[2019-10-21 08:15] VITALS: BP 118/59
--- NOTE | 2019-10-21 08:30 | NUR ---
PATIENT IS ALERT/ORIENT. SITTING UP ON THE SIDE OF THE BED TO EAT BREAKFAST. CALL LIGHT WITHIN REACH. VOICES NO NEEDS. WILL CONTINUE WITH PLAN OF CARE
--- NOTE | 2019-10-21 09:56 | NUR ---
PATIENT RESTINGIN IN BED. EYES CLOSED. CALL LIGHT WITHIN REACH. TUESDAY, NO PT, OT, OR ST.
--- NOTE | 2019-10-21 12:51 | NUR ---
I have reviewed this patient and I concur with the Shift Assessment completed by the Licensed Practical Nurse today this shift.
--- NOTE | 2019-10-21 17:17 | NUR ---
PATIENT HELPED TO BATHROOM. ASST OF ONE WITH WHEELED WALKER
[2019-10-21 19:10] VITALS: BP 109/52
--- NOTE | 2019-10-21 19:12 | NUR ---
AWAKE AND ALERT. RESTING IN BED WITH NO RESPIRATORY DISTRESS NOTED. O2/3L ON PER NASAL CANNULA. STATES SHE WOULD LIKE A ANXIETY PILL WITH HER BEDTIME MEDICATIONS. I TOLD HER I WOULD BRING IT. NO OTHER NEEDS VOICED. CALL LIGHT IN REACH.
--- NOTE | 2019-10-22 00:44 | NUR ---
RESTING NOW AFTER TAKING ATIVAN. RESPIRATIONS UNLABORED.
--- NOTE | 2019-10-22 02:58 | NUR ---
RESTING QUIETLY WITH RESPIRATIONS UNLABORED. NO DISTRESS NOTED.
--- NOTE | 2019-10-22 05:07 | NUR ---
RESTING IN BED. NO ACUTE CHANGES IN CONDITION THIS SHIFT. NO DISTRESS NOTED.
--- NOTE | 2019-10-22 05:37 | NUR ---
SHOWER DONE AND BED LINENS CHANGED. NOW BACK IN BED RESTING WITH NO DISTRESS NOTED.
[2019-10-22 07:12] LABS: BASOPHILS 0 % (0-2); EOSINOPHILS 1.7 % (0-7); HEMATOCRIT 34.5 % (36.0-48.0); HEMOGLOBIN 11.1 g/dL (12-16); IMMATURE GRANULOCYTES 0.1 % (0-5); LYMPHOCYTES 5.6 % (15-50); MCH 29.8 pg (26.0-34.0); MCHC 32.2 g/dL (31.0-37.0); MCV 92.7 fL (80.0-100.0); MEAN PLATELET VOLUME 10.8 fL (7.4-10.4); MONOCYTES 5.4 % (2-11); NEUTROPHILS 87.2 % (40-80); PLATELET COUNT 129 10x3/uL (130-400); RBC 3.72 10x6/uL (4.00-5.40); RDW 16.3 % (11.5-14.5); WBC 7.6 10x3/uL (4.8-10.8)
[2019-10-22 07:20] LABS: ANION GAP 11.5 mmol/L (8-16); CALCIUM 7.9 mg/dL (8.5-10.1); CARBON DIOXIDE 27.7 mmol/L (21.0-32.0); CREATININE - SERUM 0.8 mg/dL (0.6-1.3); POTASSIUM - SERUM 4.2 mmol/L (3.5-5.1)
--- NOTE | 2019-10-22 08:00 | NUR ---
PT RESTING IN BED WITH EYES OPEN CALL LIGHT IN REACH NO PROBLEMS WILL MONITER
[2019-10-22] MEDS ORDERED: BENICAR20 MG PO (08:11)
--- NOTE | 2019-10-22 08:12 | RHP ---
PATIENT: STARR BRANDT MEDICAL RECORD: [id number] ACCOUNT: [id number] [facility] [id number] : 37 ADMISSION DATE: 10/10/19 REHABILITATION HISTORY AND PHYSICAL EXAMINATION POST ADMISSION PHYSICIAN EXAMINATION ADMITTING DIAGNOSES: Exacerbation of chronic obstructive pulmonary disease. HISTORY OF PRESENT ILLNESS: The patient is an 84-year-old female patient who sees Dr. Shirley who presented to the ED with complaints of worsening shortness of breath. She stated that she was diagnosed with bronchitis on 09/26/2019, not gotten any better, got a history of COPD, neuropathy, hypothyroidism, arthritis, hypertension. She is an everyday tobacco smoker and has depression. The patient is followed by pulmonary during her acute hospital stay, was receiving PT and progressing slowly. She is currently on telemetry, requiring supplemental O2, IV steroids. She is on electrolyte protocol. She is deconditioned, weakness, debility, impaired mobility, gait disturbance, fall risk and self-care deficits. These are all barriers to her discharge home safely at this time. She lives at home with her son. She was independent with ADLs and mobility using a single point cane or rolling walker. Currently set up for mod assist with her ADLs, mod assist for mobility. She and her family would like her to return home at her prior level of functioning or possibly better. COMORBIDITIES: Include COPD, acute respiratory failure, systolic and diastolic heart failure, tracheobronchitis, emphysema, pleural effusions, debility, COPD, nicotine dependence, normocytic anemia, electrolyte abnormalities, [id number] protein-calorie malnutrition, neuropathy, hypothyroidism, hypertension, hyperlipidemia, arthritis and depression. PAST MEDICAL HISTORY: Significant for neuropathy. She has got a history of thyroid problems, arthritis, depression, tobacco use, urinary incontinence. PAST SURGICAL HISTORY: Includes hysterectomy. ALLERGIES: ANY TYPE OF STATIN OR CHOLESTEROL LOWERING MEDICATIONS. CURRENT MEDICATIONS: Imitrex Rheumatrex or methotrexate 10 mg, she takes on Tuesday; she is on leucovorin 5 mg on Tuesday and Tuesday; she is on Benicar 20 mg daily; amlodipine 10 mg daily; Daliresp 250 mcg daily; she is on Plaquenil 200 mg daily; she is on Solu-Medrol 40 mg IV daily; Mucinex 600 mg daily; Cymbalta 30 mg daily; Singulair 10 mg at bedtime; Colace 100 mg b.i.d.; budesonide 0.5 mg b.i.d.; lorazepam 0.5 mg every 8 hours; Tessalon Perles 100 mg t.i.d. and Ventolin updrafts. HABITS: Does continue to use tobacco. No alcohol use. FAMILY HISTORY: Noncontributory. SOCIAL HISTORY: The patient hopes to return back home and get back to her prior level of functioning. REVIEW OF SYSTEMS: GENERAL: Does complain of some weakness and fatigue. HEENT: Denies cold, cough, or congestion. CARDIOVASCULAR: Denies any chest pain. HISTORY AND PHYSICAL [id number] SORTERSTARR LUNGS: Does complain of shortness of breath. PHYSICAL EXAMINATION: VITAL SIGNS: Stable, afebrile. GENERAL: A very thin, cachectic elderly female in no acute distress, alert upon exam. HEENT: Normocephalic and atraumatic. Mucosa moist. NECK: Supple, with no lymphadenopathy. LUNGS: Clear in upper vargas, but decreased breath sounds at both bases. HEART: Regular rate and rhythm. ABDOMEN: Soft, benign, and nondistended. Positive bowel sounds times 4. EXTREMITIES: No clubbing, cyanosis or edema. NEUROLOGIC: She is a little bit slow to mentate, but mainly intact. LABORATORY DATA: White count is 18.6, H&H of 11 and 33 and platelet count is noted to be 312. Her UA was negative. Chemistry showed sodium 134, potassium of 4.8, BUN and creatinine of 55 and 1.3 and blood sugar was noted to be 227. Her AST, ALT and alkaline phosphatase are all elevated at 155, 242 and 144 respectively, probably secondary to venous congestion from heart failure. ASSESSMENT: This is an 84-year-old female patient admitted to rehab with a working diagnosis of acute exacerbation of chronic obstructive pulmonary disease. The patient has potential to make improvement. We instituted the following multidisciplinary therapies including, but not limited to physical, occupational, respiratory, speech, nutritional services, prosthetics and orthotics. Given her complex medical condition and risks for more complications, risk of further medical complications, cannot be addressed at a lower level of care such as skilled nurse facility. PLAN: 1. Admit to [facility] rehab for inpatient therapy to include the following disciplines: A. Physical therapy to improve gait, all transfer skills and bed mobility to a modified independent level. B. Occupational therapy to a modified independent level. C. Case management to assist with discharge planning and placement options. D. Nutrition to assist with nutritional needs. E. Rehabilitation nursing to assist in monitoring the patient's underlying medical conditions and to assist with any type of bowel or bladder management. 2. The patient's current medication and medical care will be continued. 3. The patient will be placed on standard fall precautions. 4. The patient's estimated length of stay is approximately 7-10 days. 5. We will discuss this patient during care team staff meeting this week. TRANSINT:[id number] Voice Confirmation ID: [id number] DOCUMENT ID: [id number] ZAFAR notes whether there has been none or any medical/functional change since admission: - No change since preadmission screen. ZAFAR attests patient continues to be appropriate for IRF: - Continues to be appropriate. HISTORY AND PHYSICAL [id number] STARR BRANDT,ELIZABET WOODS MD at 0812 CC: [id number] DICTATION DATE: 10/11/19 0841 ELECTRICAL RESEARCH ENGINEER: 10/11/19 0935 ADM IN [place] [id number] [place] [id number]
--- NOTE | 2019-10-22 11:47 | NUR ---
ORDER HAS BEEN FAXED TO [facility] FOR HOME O2, NEBULIZER AND A WHEELCHAIR FOR HOME USE. WILL CONTINUE TO FOLLOW WITH PATIENT.
--- NOTE | 2019-10-22 14:01 | NUR ---
Nutrition Follow-up: Diet: Regular [facility] Soft + Oral Nutrition supplements with meals PO intake: ~42% average x last 9 meals recorded. She reports that her appetite is "better." States that she is drinking ONS occationally. Last BM: 10/22/19. WT: 125# (10/15/19); Admit wt: 114# (10/10/19) Meds noted: lasix, methotrexate, colace. Labs noted: Na 129(L) Continue current diet. Encouraged PO intake. Encouraged intake of oral nutrition supplements. Consider adding appetite stimulant if PO intake does not improve. Needs new wt. RD following.
--- NOTE | 2019-10-22 19:15 | NUR ---
PT SITTING UP IN BED VISITING WITH SON. CL IN REACH. DENIES NEEDS AT THIS TIME. BED IN LOW SIDE RAILS X2. A/O X4. LUNGS DIMINISHED. BOWEL ACTIVE X4. O2 ON 3L VIA NC. RESP EVEN AND UNLABORED. WILL CONTINUE TO MONITOR.
[2019-10-22 20:04] VITALS: BP 113/63
--- NOTE | 2019-10-23 01:20 | NUR ---
ASSISTED TO AND FROM BATHROOM. DENIES FURTHER NEEDS. CL IN REACH. WCTM
--- NOTE | 2019-10-23 04:11 | NUR ---
I have reviewed this patient and I concur with the Shift Assessment completed by the Licensed Practical Nurse today this shift.
--- NOTE | 2019-10-23 05:41 | NUR ---
ASSISTED TO AND FROM BATHROOM. CL IN REACH. DENIES FURTHER NEEDS. WCTM
--- NOTE | 2019-10-23 08:00 | NUR ---
PT RESTING IN BED WITH EYES OPEN CALL LIGHT IN REACH WILL MONITER
[2019-10-23 08:18] VITALS: BP 91/46
--- NOTE | 2019-10-23 09:05 | NUR ---
PATIENT DISCHARGING HOME TODAY WITH FAMILY. [facility] HOME WILL PROVIDE THERPY AT HOME. [facility] WILL PROVIDE O2, NEBULIZER AND A WHEELCHAIR TO PATIENT. DR. WATSON 10/30/2019 @ 2:30. PATIENT CHOICE FORM FOR HOME HEALTH WITH COMPARE DATA REVEIWED WITH PATIENT, SHE VOICED UNDERSTANDING. [facility] FORM SIGNED, COPY FILED IN CHART AND GIVEN TO PATIENT. DISCHARGE INSTRUCTIONS FAXED TO PCP, HOME HEALTH AND REVIEWED WITH PATIENT.
[2019-10-23] MEDS ORDERED: ATIVAN0.5 MG (11:31)
[2019-10-23] MEDS ORDERED: PROVENTIL/2.5 MG/3 M INH (11:33)
[2019-10-23] MEDS ORDERED: FUROSEMIDE20 MG PO (11:33)
[2019-10-23] MEDS ORDERED: LEUCOVORIN CALC25 MG PO (11:34)
--- NOTE | 2019-10-23 11:45 | NUR ---
PT DISCHARGED HOME VIA WHEELCHAIR WITH SON. DISCHARGE SUMMARY AND MEDS REVIEWED WITH PT NO QUESTIONS OR CONCERNS TOLERATED WELL
== END 2019-10-23 13:05 | disposition home health service (06) | DRG 190 ==
LOC: D.REHAB 15:59
PROVIDERS: ADMIT Emergency Medicine; ATTEND Emergency Medicine
DX: J43.9 Emphysema, unspecified (principal); J96.01 Acute respiratory failure with hypoxia; I50.43 Acute on chronic combined systolic (congestive) and diastolic (congestive) heart failure; J90 Pleural effusion, not elsewhere classified; E44.0 Moderate protein-calorie malnutrition; F17.203 Nicotine dependence unspecified, with withdrawal; E87.1 Hypo-osmolality and hyponatremia; E87.0 Hyperosmolality and hypernatremia; I11.0 Hypertensive heart disease with heart failure; R53.81 Other malaise; F17.200 Nicotine dependence, unspecified, uncomplicated; D64.9 Anemia, unspecified; E78.5 Hyperlipidemia, unspecified; M19.90 Unspecified osteoarthritis, unspecified site; F32.9 Major depressive disorder, single episode, unspecified; E03.9 Hypothyroidism, unspecified; G62.9 Polyneuropathy, unspecified; J40 Bronchitis, not specified as acute or chronic; E87.8 Other disorders of electrolyte and fluid balance, not elsewhere classified

== ENCOUNTER 2019-10-25 11:13 | Inpatient (IN) | payer MEDICARE, OTHER ==
[~2019-10-25] VITALS: Ht 149.9 cm; Wt 49.9 kg
[~2019-10-25 11:13] MED LIST changes: +ATIVAN0.5 MG; +BENICAR20 MG PO; +DALIRESP250 MCG PO; +FUROSEMIDE20 MG PO; +LEUCOVORIN CALC25 MG PO; +PROVENTIL/2.5 MG/3 M INH; +PULMICORT0.5 MG/21 UPD; +SINGULAIR10 MG PO; +SOLU-MEDRO40 MG/1 M1 IV
[2019-10-25 12:24] LABS: BASOPHILS 0.2 % (0-2); EOSINOPHILS 1.4 % (0-7); HEMATOCRIT 36.4 % (36.0-48.0); HEMOGLOBIN 11.8 g/dL (12-16); IMMATURE GRANULOCYTES 0.2 % (0-5); MCHC 32.4 g/dL (31.0-37.0); MCV 92.6 fL (80.0-100.0); MEAN PLATELET VOLUME 10.6 fL (7.4-10.4); MONOCYTES 3.9 % (2-11); NEUTROPHILS 88.3 % (40-80); RBC 3.93 10x6/uL (4.00-5.40); RDW 15.9 % (11.5-14.5); WBC 6.5 10x3/uL (4.8-10.8)
[2019-10-25 12:29] LABS: ANION GAP 10.4 mmol/L (8-16); CALCIUM 8.1 mg/dL (8.5-10.1); CREATININE - SERUM 0.9 mg/dL (0.6-1.3); POTASSIUM - SERUM 3.4 mmol/L (3.5-5.1)
[2019-10-25 12:34] LABS: PLATELET COUNT 177 10x3/uL (130-400)
[2019-10-25 12:43] LABS: ALBUMIN 2.6 g/dL (3.4-5.0); BILIRUBIN - TOTAL 0.37 mg/dL (0.2-1.3); PROTEIN - SERUM 6.8 g/dL (6.4-8.2)
--- NOTE | 2019-10-25 12:46 | NUR ---
RECEIVED PT FROM ADMISSIONS. PT IS AAO AND UP WITH MAX ASSIST. PT CURRENTLY LYING SEMI FOWLERS. CALL LIGHT W/I REACH. FAMILY AT BEDSIDE. RR EVEN AND UNLABORED ON 3L HIGH FLOW NC. VSS AND WNL. 22GA PIV INITIATED TO THE LEFT AC. FLUSHED WITH 10ML NS TO CONFIRM PATENCY. PT TOLERATED WELL. TELEMETRY APPLIED AND PT RUNNING 82 SINUS RYTHM. BLADDER SCAN PERFORMED AND PT HAS 200ML RECORDED AFTER VOIDING. NS INFUSING @50ML/HR VIA L.AC PIV. QUICKSTART, HISTORY, AND MED REQ COMPLETE. PT DENIES ANY NEEDS. WILL CTM.
[2019-10-25 13:46] VITALS: BP 95/66
--- NOTE | 2019-10-25 14:05 | MORECARE ---
CASE MANAGEMENT DISCHARGE SUMMARY PATIENT: STARR BRANDT UNIT: [id number] ADM DATE: 10/25/19 AGE: 84 : 36 SEX: F ROOM/BED: D.2132 AUTHOR: ANTONIO RANDALL PHYSICIAN: REFERRING PHYSICIAN: JANA COBOS MD DATE OF SERVICE: 10/25/19 Discharge Plan Patient Name: STARR BRANDT Facility: [facility]:[place] : 1935 Planned Disposition: Inpatient Rehab Anticipated Discharge Date: Discharge Date: Expected LOS: Initial Reviewer: [email or web address] Initial Review Date: 10/25/2019 Generated: 10/25/19 3:04 pm Patient Name: STARR BRANDT Page [phone] at 1405 All edits/amendments must be made on the electronic document DICTATION DATE: 10/25/19 1404 MOTION PICTURE EQUIPMENT MACHINIST: ERINN 10/25/19 1404 RPT#: [id number] DC DATE: STATUS: ADM IN [facility] [address] [place] [address] END OF REPORT
--- NOTE | 2019-10-25 14:13 | MORECARE ---
CASE MANAGEMENT DISCHARGE SUMMARY PATIENT: STARR BRANDT UNIT: [id number] ADM DATE: 10/25/19 AGE: 84 : 36 SEX: F ROOM/BED: D.2132 AUTHOR: TONIA,DOC PHYSICIAN: REFERRING PHYSICIAN: JANA COBOS MD DATE OF SERVICE: 10/25/19 Discharge Plan Patient Name: STARR BRANDT Facility: [facility]:[place] : 1935 Planned Disposition: Inpatient Rehab Anticipated Discharge Date: Discharge Date: Expected LOS: Initial Reviewer: [email or web address] Initial Review Date: 10/25/2019 Generated: 10/25/19 3:12 pm Comments DCP- Discharge Planning Updated by [email or web address]: Carlos Manuel De Los Santos on 10/25/19 1:[address] Patient Name: STARR BRANDT Admission Status: Elective Accout number: [id number] Admission Date: 10-25-2019 : 1935 Admission Diagnosis: Attending: JANA COBOS Current LOS: 1 Anticipated DC Date: Planned Disposition: Inpatient Rehab Primary Insurance: MEDICARE A & B PLANNED EXTERNAL PROVIDER: [facility] Discharge Planning Comments: CM RECEIVED ORDER FOR REHAB AFTER TREATMENT. CM MET WITH PT IN ROOM TO DISCUSS DISCHARGE PLANNING AND NEEDS. PT REPORTS LIVING AT HOME INDEPENDENTLY WITH HER DAUGHTER. PT HAS WALKER, WHEELCHAIR, HOME AND PORTABLE OXYGEN AND NEBULIZER. PT CANNOT REMEMBER THE NAME OF HER MEDICAL EQUIPMENT PROVIDER. PT HAS HOME HEALTH WITH [facility] AND JUST GOT OUT OF REHAB AT [facility] 2 DAYS AGO. PT STATES SHE WAS THERE FOR 4 OR 5 DAYS ONLY. CM DISCUSSED AVAILABILITY OF HOME HEALTH, REHAB SERVICES AND MEDICAL EQUIPMENT. PT STATES IF SHE NEEDS REHAB, SHE WOULD LIKE REHAB AT [facility]. IF SHE IS ABLE TO GO HOME, SHE WANTS HOME HEALTH RESUMPTION WITH [facility]. CHOICE SIGNED FOR BOTH OPTIONS / CHOICES. PT REPORTS HER FAMILY WILL PICK HER UP FOR DISCHARGE HOME. PT WOULD LIKE REHAB AT [facility] IF SHE NEEDS IT. IF SHE IS ABLE TO GO HOME, SHE WANTS RESUMPTION OF [facility]. CM WAITING MEDICAL STABILITY, THERAPY EVALUATIONS AND INPATIENT REHAB PRESCREEN RESULTS FROM [facility]. Strategic Account Director: Carlos Manuel De Los Santos DCPIA - Discharge Planning Initial Assessment Updated by [email or web address]: Carlos Manuel De Los Santos on 10/25/19 2:05 pm * Is the patient Alert and Oriented? Yes * How many steps to enter\exit or inside your home? RAMP * PCP DR. WATSON * Pharmacy [facility] * Preadmission Environment Home with Family * ADLs Independent * Equipment Nebulizer Oxygen Walker Wheelchair * Other Equipment HOME AND PORTABLE OXYGEN, COMPANY UNKNOWN * List name and contact numbers for known caregivers / representatives who currently or will assist patient after discharge: ARIELLE BRANDT, SON, [place] [phone] * Verbal permission to speak to the caregivers and representatives has been obtained from the patient. N/A * Community resources currently utilized None * Please name any agencies selected above. NONE * Additional services required to return to the preadmission environment? No * Can the patient safely return to the preadmission environment? Yes * Has this patient been hospitalized within the prior 30 days at any hospital? Yes Last DP export: 10/25/19 1:05 p Patient Name: STARR BRANDT Page [id number] at 1413 All edits/amendments must be made on the electronic document DICTATION DATE: 10/25/191411 WHARF TENDER: ERINN 10/25/191411 RPT#: [id number] DC DATE: STATUS: ADM IN [facility] [address] [place] [address] END OF REPORT
[2019-10-25 14:47] LABS: APPEARANCE CLEAR (CLEAR); BILIRUBIN NEGATIVE (NEGATIVE); COLOR STRAW (YELLOW); GLUCOSE NEGATIVE (NEGATIVE); KETONE NEGATIVE (NEGATIVE); NITRITE NEGATIVE (NEGATIVE); PROTEIN NEGATIVE (NEGATIVE); SPECIFIC GRAVITY 1.005 (1.005-1.020); UROBILINOGEN NORMAL (NORMAL)
[2019-10-25 15:25] VITALS: BP 95/66; BMI 22.2
--- NOTE | 2019-10-25 15:58 | NUR ---
Rehab Note- Acute Inpatient Rehab prescreen order received. THe patient just recently discharged from our inpatient acute rehab unit. WIll follow to see if any changes, has a pending PT Eval. Thank you for this referral! Rito Hodges RN CLinical Liaison, [facility] Rehab Clinical Liaison, [facility] Rehab
--- NOTE | 2019-10-25 17:23 | NUR ---
RECEIVED ORDERS PER JUANY GRANGER TO CANCEL CTA OF CHEST R/T NOT BEING ABLE TO START 20GA IV AND ORDER A VQ LUNG SCAN. ORDERS PLACED. WILL CTM.
[2019-10-25 17:49] VITALS: BP 119/55
--- NOTE | 2019-10-25 19:10 | NUR ---
BEDSIDE REPORT RECEIVED FROM DAY SHIFT, PT CARE ASSUMED. INTRODUCED SELF AND WROTE NAME ON BOARD. PT SITTING UP IN BED AAOX4, EATING DINNER AND VISITING WITH FAMILY AT BEDSIDE. FAMILY'S QUESTIONS ANSWERED. PT DENIES ANY NEEDS AT THIS TIME. BED IN LOWEST POSITION, SR X2, CALL LIGHT WITHIN REACH. WILL CONTINUE TO MONITOR.
[2019-10-25 21:32] VITALS: BP 116/61
[2019-10-26] VITALS: BP 107/53
[2019-10-26 04:00] VITALS: BP 91/57
[2019-10-26 06:29] LABS: BASOPHILS 0.2 % (0-2); EOSINOPHILS 1.9 % (0-7); HEMATOCRIT 33.6 % (36.0-48.0); IMMATURE GRANULOCYTES 0.2 % (0-5); MCH 30.3 pg (26.0-34.0); MCHC 32.7 g/dL (31.0-37.0); MCV 92.6 fL (80.0-100.0); MEAN PLATELET VOLUME 10.7 fL (7.4-10.4); MONOCYTES 4.7 % (2-11); PLATELET COUNT 182 10x3/uL (130-400); RBC 3.63 10x6/uL (4.00-5.40); WBC 6.4 10x3/uL (4.8-10.8)
[2019-10-26 06:51] LABS: ANION GAP 9.3 mmol/L (8-16); CALCIUM 7.7 mg/dL (8.5-10.1); CARBON DIOXIDE 28.2 mmol/L (21.0-32.0); POTASSIUM - SERUM 3.5 mmol/L (3.5-5.1)
--- NOTE | 2019-10-26 07:10 | NUR ---
REPORT RECEIVED FROM ORGANIC SECTION TECHNICAL LEAD AND PATIENT CARE ASSUMED. SITTING UP IN BED AWAKE, ALERT AND ORIENTED X 4. PATIENT IS STABLE AND DENIES ANY NEEDS OR PAIN. WILL CONTINUE WITH PLAN OF CARE. SR UP X 2 BED IN LOW POSITION AND CALL LIGHT IN REACH.
[2019-10-26 09:19] VITALS: BP 112/65
[2019-10-26 13:29] VITALS: BP 111/61
[2019-10-26 14:44] VITALS: Ht 149.9 cm; Wt 49.9 kg
--- NOTE | 2019-10-26 15:23 | NUR ---
OT NOTE: PT COMPLETED FACE WASH WITH SET UP. PT COMPLETED BUE AROM AXS WITH ADL. PT COMPLETED POSITIONING WITH SBA. PT STATED HER MOUTH IS SORE. BUT IS IMPROVING. NURSING AWARE. [id number] THANK YOU,FILIPPO HOFF
[2019-10-26 18:37] VITALS: BP 103/53
--- NOTE | 2019-10-26 19:10 | NUR ---
BEDSIDE REPORT RECEIVED FROM DAY SHIFT, PT CARE ASSUMED. WROTE NAME ON BOARD. PT SITTING UP IN CHAIR AT BEDSIDE, VISITING WITH FAMILY. DENIES ANY NEEDS AT THIS TIME. BED IN LOWEST POSITION, CALL LIGHT WITHIN REACH. WILL CONTINUE TO MONITOR.
[2019-10-26 20:00] VITALS: BP 104/48
[2019-10-27] VITALS: BP 118/64
[2019-10-27 04:00] VITALS: BP 124/68
[2019-10-27 06:08] LABS: BASOPHILS 0 % (0-2); EOSINOPHILS 2.5 % (0-7); HEMATOCRIT 32.7 % (36.0-48.0); HEMOGLOBIN 10.6 g/dL (12-16); IMMATURE GRANULOCYTES 0.2 % (0-5); LYMPHOCYTES 6.8 % (15-50); MCH 29.9 pg (26.0-34.0); MCHC 32.4 g/dL (31.0-37.0); MCV 92.4 fL (80.0-100.0); MEAN PLATELET VOLUME 10.1 fL (7.4-10.4); NEUTROPHILS 85.5 % (40-80); PLATELET COUNT 205 10x3/uL (130-400); RBC 3.54 10x6/uL (4.00-5.40); RDW 16.5 % (11.5-14.5); WBC 5.2 10x3/uL (4.8-10.8)
[2019-10-27 06:33] LABS: ANION GAP 11.7 mmol/L (8-16); CALCIUM 7.9 mg/dL (8.5-10.1); CARBON DIOXIDE 28.9 mmol/L (21.0-32.0); CREATININE - SERUM 0.9 mg/dL (0.6-1.3); POTASSIUM - SERUM 3.6 mmol/L (3.5-5.1)
[2019-10-27 08:53] VITALS: BP 123/60
[2019-10-27 10:06] LABS: % SATURATION 11 % (15-55); IRON 25 ug/dl (35-150); TOTAL IRON BIND CAPACITY 221 ug/dl (260-445); UNSAT IRON BIND CAPACITY 196 ug/dl (150-375)
[2019-10-27 12:09] VITALS: BP 114/59
--- NOTE | 2019-10-27 12:12 | NUR ---
I have reviewed this patient and I concur with the Shift Assessment completed by the Licensed Practical Nurse today this shift.
[2019-10-27 16:52] VITALS: BP 106/54
--- NOTE | 2019-10-27 19:10 | NUR ---
BEDSIDE REPORT RECEIVED FROM DAY SHIFT, PT CARE ASSUMED. WROTE NAME ON BOARD. PT SITTING UP IN BED, AAOX4 VISITING WITH FAMILY AT BEDSIDE. DENIES ANY NEEDS AT THIS TIME. BED IN LOWEST POSITION, SR X2, CALL LIGHT WITHIN REACH. WILL CONTINUE TO MONITOR.
[2019-10-27 20:00] VITALS: BP 95/49
--- NOTE | 2019-10-27 23:03 | NUR ---
ASSISTED PT TO RESTROOM AND BACK TO BED. DENIES ANY NEEDS AT THIS TIME. BED IN LOWEST POSITION, SR X2, CALL LIGHT WITHIN REACH. WILL CONTINUE TO MONITOR.
[2019-10-28] VITALS: BP 104/52
[2019-10-28 04:00] VITALS: BP 113/50
[2019-10-28 06:53] LABS: BASOPHILS 0.2 % (0-2); EOSINOPHILS 4.2 % (0-7); HEMATOCRIT 35.1 % (36.0-48.0); HEMOGLOBIN 11.6 g/dL (12-16); IMMATURE GRANULOCYTES 0.5 % (0-5); LYMPHOCYTES 6.8 % (15-50); MCH 30.6 pg (26.0-34.0); MCV 92.6 fL (80.0-100.0); MEAN PLATELET VOLUME 9.8 fL (7.4-10.4); MONOCYTES 6.3 % (2-11); PLATELET COUNT 222 10x3/uL (130-400); RBC 3.79 10x6/uL (4.00-5.40); RDW 16.3 % (11.5-14.5); WBC 4.3 10x3/uL (4.8-10.8)
[2019-10-28 07:19] LABS: ANION GAP 9.1 mmol/L (8-16); CARBON DIOXIDE 31.2 mmol/L (21.0-32.0); CREATININE - SERUM 0.9 mg/dL (0.6-1.3); POTASSIUM - SERUM 3.3 mmol/L (3.5-5.1)
--- NOTE | 2019-10-28 08:03 | NUR ---
PT RESTING. RR EVEN AND UNLABROED. DAUGHTER AT BEDSIDE. DENIES NEEDS OR PAIN AT THIS TIME. BED IN LOWEST POSITION. AXO. CALL LIGHT WITHIN REACH. WILL CONTINUE TO MONITOR.
[2019-10-28 08:27] VITALS: BP 99/59
--- NOTE | 2019-10-28 11:59 | NUR ---
D/C INSTRUCTIONS REVIEWED WITH PT. VERBALIZED UNDERSTANDING AND DENIES FURTHER QUESTIONS AT THIS TIME. IV D/C WITH CATHETER TIP INTACT. TELEMETRYREMOVED AND RETURNED TO GEAR CHANGER. PT LEFT VIA WHEELCHAIR WITH ALL BELONGINGS TO PERSONAL VEHICLE.
--- NOTE | 2019-10-28 19:20 | MORECARE ---
CASE MANAGEMENT DISCHARGE SUMMARY PATIENT: STARR BRANDT UNIT: [id number] ADM DATE: 10/25/19 AGE: 84 : 36 SEX: F ROOM/BED: D.6367 AUTHOR: TONIA,DOC PHYSICIAN: REFERRING PHYSICIAN: JANA COBOS MD DATE OF SERVICE: 10/28/19 Discharge Plan Patient Name: STARR BRANDT [facility] [facility] 1935 Planned Disposition: Inpatient Rehab Anticipated Discharge Date: Discharge Date: 10/28/2019 Expected LOS: Initial Reviewer: [id number] Initial Review Date: 10/25/2019 Generated: 10/28/19 8:19 pm DCP- Discharge Planning Updated by [email or web address]: Carlos Manuel De Los Santos on 10/25/19 1:[address] Patient Name: STARR BRANDT Admission Status: Elective Accout number: [id number] Admission Date: 10-25-2019 : 1935 Admission Diagnosis: Attending: JANA COBOS Current LOS: 1 Anticipated DC Date: Planned Disposition: Inpatient Rehab Primary Insurance: MEDICARE A & B PLANNED EXTERNAL PROVIDER: [facility] Discharge Planning Comments: CM RECEIVED ORDER FOR REHAB AFTER TREATMENT. CM MET WITH PT IN ROOM TO DISCUSS DISCHARGE PLANNING AND NEEDS. PT REPORTS LIVING AT HOME INDEPENDENTLY WITH HER DAUGHTER. PT HAS WALKER, WHEELCHAIR, HOME AND PORTABLE OXYGEN AND NEBULIZER. PT CANNOT REMEMBER THE NAME OF HER MEDICAL EQUIPMENT PROVIDER. PT HAS HOME HEALTH WITH [facility] AND JUST GOT OUT OF REHAB AT [facility] 2 DAYS AGO. PT STATES SHE WAS THERE FOR 4 OR 5 DAYS ONLY. CM DISCUSSED AVAILABILITY OF HOME HEALTH, REHAB SERVICES AND MEDICAL EQUIPMENT. PT STATES IF SHE NEEDS REHAB, SHE WOULD LIKE REHAB AT [facility]. IF SHE IS ABLE TO GO HOME, SHE WANTS HOME HEALTH RESUMPTION WITH [facility]. CHOICE SIGNED FOR BOTH OPTIONS / CHOICES. PT REPORTS HER FAMILY WILL PICK HER UP FOR DISCHARGE HOME. PT WOULD LIKE REHAB AT [facility] INPATIENT REHAB IF SHE NEEDS IT. IF SHE IS ABLE TO GO HOME, SHE WANTS RESUMPTION OF [facility]. CM WAITING MEDICAL STABILITY, THERAPY EVALUATIONS AND INPATIENT REHAB PRESCREEN RESULTS FROM [facility]. Television Reporter: Carlos Manuel De Los Santos DCPIA - Discharge Planning Initial Assessment Updated by [email or web address]: Carlos Manuel De Los Santos on 10/25/19 2:05 pm * Is the patient Alert and Oriented? Yes * How many steps to enter\exit or inside your home? RAMP * PCP DR. WATSON * Pharmacy [facility] * Preadmission Environment Home with Family * ADLs Independent * Equipment Nebulizer Oxygen Walker Wheelchair * Other Equipment HOME AND PORTABLE OXYGEN, COMPANY UNKNOWN * List name and contact numbers for known caregivers / representatives who currently or will assist patient after discharge: ARIELLE BRANDT, SON, [place] [phone] * Verbal permission to speak to the caregivers and representatives has been obtained from the patient. N/A * Community resources currently utilized None * Please name any agencies selected above. NONE * Additional services required to return to the preadmission environment? No * Can the patient safely return to the preadmission environment? Yes * Has this patient been hospitalized within the prior 30 days at any hospital? Yes External Providers External Provider: [facility] Next Contact Date: Service Request Date: Service Type: Resolution: Reviewer: Comments: Coverage Notice Reviewer: [id number] - Carlos Manuel De Los Santos Notice Issued Date-Time: 10/25/2019 21:32 Notice Type: Patient Choice Letter Notice Delivered To: Patient Relationship to Patient: Glove Maker Name: Delivery Method: HAND - Hand Delivered Vicenta Days: Prior Verbal Notification: Recipient Understood Notice: Yes Recipient Signature: Yes Med Rec Note Co-signed by Attending: Coverage Notice Comment: [facility] Last DP export: 10/25/19 1:13 p Patient Name: STARR BRANDT Page [id number] at 1920 All edits/amendments must be made on the electronic document DICTATION DATE: 10/28/191918 LOG BUYER: ERINN 10/28/191918 RPT#: [id number] DC DATE:10/28/19 STATUS: DIS IN [facility] [address] [place] [address] END OF REPORT
--- NOTE | 2019-10-28 19:27 | MORECARE ---
CASE MANAGEMENT DISCHARGE SUMMARY PATIENT: STARR BRANDT UNIT: [id number] ADM DATE: 10/25/19 AGE: 84 : 36 SEX: F ROOM/BED: D.2132 AUTHOR: TONIA,DOC PHYSICIAN: REFERRING PHYSICIAN: JANA COBOS MD DATE OF SERVICE: 10/28/19 Discharge Plan Patient Name: STARR BRANDT Facility: [facility]:[place] : 1935 Planned Disposition: Inpatient Rehab Anticipated Discharge Date: Discharge Date: 10/28/2019 Expected LOS: Initial Reviewer: [id number] Initial Review Date: 10/25/2019 Generated: 10/28/19 8:26 pm Comments DCP- Discharge Planning Updated by [email or web address]: Regi Gómez on 10/28/19 6:[address] Patient Name: STARR BRANDT Encounter No: [id number] : 1935 Primary Insurance: MEDICARE A & B Anticipated DC Date: Planned Disposition: Inpatient Rehab External Planned Provider: : FAXED D/C [facility] TO [facility] DCP follow-up note: Patient and family in agreement with discharge plan. No changes to plan. Case management will follow and assist as needed. Regi Gómez DCP- Discharge Planning Updated by [email or web address]: Carlos Manuel De Los Santos on 10/25/19 1:[address] Patient Name: STARR BRANDT Admission Status: Elective Accout number: [id number] Admission Date: 10-25-2019 : 1935 Admission Diagnosis: Attending: JANA COBOS Current LOS: 1 Anticipated DC Date: Planned Disposition: Inpatient Rehab Primary Insurance: MEDICARE A & B PLANNED EXTERNAL PROVIDER: [facility] IN[facility] Discharge Planning Comments: CM RECEIVED ORDER FOR REHAB AFTER TREATMENT. CM MET WITH PT IN ROOM TO DISCUSS DISCHARGE PLANNING AND NEEDS. PT REPORTS LIVING AT HOME INDEPENDENTLY WITH HER DAUGHTER. PT HAS WALKER, WHEELCHAIR, HOME AND PORTABLE OXYGEN AND NEBULIZER. PT CANNOT REMEMBER THE NAME OF HER MEDICAL EQUIPMENT PROVIDER. PT HAS HOME HEALTH WITH [facility] AND JUST GOT OUT OF REHAB AT [facility] 2 DAYS AGO. PT STATES SHE WAS THERE FOR 4 OR 5 DAYS ONLY. CM DISCUSSED AVAILABILITY OF HOME HEALTH, REHAB SERVICES AND MEDICAL EQUIPMENT. PT STATES IF SHE NEEDS REHAB, SHE WOULD LIKE REHAB AT [facility]. IF SHE IS ABLE TO GO HOME, SHE WANTS HOME HEALTH RESUMPTION WITH [facility]. CHOICE SIGNED FOR BOTH OPTIONS / CHOICES. PT REPORTS HER FAMILY WILL PICK HER UP FOR DISCHARGE HOME. PT WOULD LIKE REHAB AT [facility] INPATIENT REHAB IF SHE NEEDS IT. IF SHE IS ABLE TO GO HOME, SHE WANTS RESUMPTION OF [facility]. CM WAITING MEDICAL STABILITY, THERAPY EVALUATIONS AND INPATIENT REHAB PRESCREEN RESULTS FROM [facility]. Dental Surgeon: Carlos Manuel De Los Santos DCPIA - Discharge Planning Initial Assessment Updated by [email or web address]: Carlos Manuel De Los Santos on 10/25/19 2:05 pm * Is the patient Alert and Oriented? Yes * How many steps to enter\exit or inside your home? RAMP * PCP DR. WATSON * Pharmacy [facility] * Preadmission Environment Home with Family * ADLs Independent * Equipment Nebulizer Oxygen Walker Wheelchair * Other Equipment HOME AND PORTABLE OXYGEN, COMPANY UNKNOWN * List name and contact numbers for known caregivers / representatives who currently or will assist patient after discharge: RAIELLE BRANDT, SON, [place] [phone] * Verbal permission to speak to the caregivers and representatives has been obtained from the patient. N/A * Community resources currently utilized None * Please name any agencies selected above. NONE * Additional services required to return to the preadmission environment? No * Can the patient safely return to the preadmission environment? Yes * Has this patient been hospitalized within the prior 30 days at any hospital? Yes Coverage Notice Reviewer: [id number] - Carlos Manuel De Los Santos Notice Issued Date-Time: 10/25/2019 21:32 Notice Type: Patient Choice Letter Notice Delivered To: Patient Relationship to Patient: Brand Sales Consultant Name: Delivery Method: HAND - Hand Delivered Vicenta Days: Prior Verbal Notification: Recipient Understood Notice: Yes Recipient Signature: Yes Med Rec Note Co-signed by Attending: Coverage Notice Comment: [facility] Reviewer: [id number] Michelle Gómez Notice Issued Date-Time: 10/28/2019 11:00 Notice Type: IM Discharge Notice Notice Delivered To: Family Member Relationship to Patient: Daughter Brand Sales Consultant Name: Delivery Method: HAND - Hand Delivered Vicenta Days: Prior Verbal Notification: Recipient Understood Notice: Yes Recipient Signature: Yes Med Rec Note Co-signed by Attending: Coverage Notice Comment: Last DP export: 10/28/19 6:20 p Patient Name: STARR BRANDT Page [id number] at 1927 All edits/amendments must be made on the electronic document DICTATION DATE: 10/28/191925 COMMISSARY AGENT: ERINN 10/28/191925 RPT#: [id number] DC DATE:10/28/19 STATUS: DIS IN [facility] [address] [place] [address] END OF REPORT
== END 2019-10-28 11:59 | disposition home or self-care (01) | DRG 291 ==
LOC: D.M2 11:13
PROVIDERS: ADMIT Internal Medicine Nephrology; ATTEND Internal Medicine Nephrology
DX: I11.0 Hypertensive heart disease with heart failure (principal); J96.21 Acute and chronic respiratory failure with hypoxia; E87.1 Hypo-osmolality and hyponatremia; F17.213 Nicotine dependence, cigarettes, with withdrawal; I50.43 Acute on chronic combined systolic (congestive) and diastolic (congestive) heart failure; I08.1 Rheumatic disorders of both mitral and tricuspid valves; E87.6 Hypokalemia; E03.9 Hypothyroidism, unspecified; J43.9 Emphysema, unspecified